=== PATIENT | female | born 1955 | race Caucasian/White ===

== ENCOUNTER → 2018-01-30 | Outpatient (CLI) | payer OTHER ==
[~2018-01-30] MED LIST: ASPI325 PO; Aspir-Low81 MG PO; B-121000 MC2 PO; CLOP75 PO; INSULIN PUMP INJ; LEVO-T75 MCG PO; METO50ER PO; ROSU10TA PO; VALS80 PO
== END | disposition home or self-care (01) ==
LOC: LAB 08:15 → LAB SHORT 08:15
PROVIDERS: Nurse Practitioner
DX: Z01.419 Encounter for gynecological examination (general) (routine) without abnormal findings (principal)
CPT/HCPCS: G0145

== ENCOUNTER 2018-02-08 09:35 | Day surgery (SDC) | payer OTHER ==
[~2018-02-08] VITALS: Ht 152.4 cm; Wt 63.0 kg
[~2018-02-08 09:35] MED LIST changes: +Centrum Silver1 EAC1 PO; +VITAMIN D31000 UNIT PO
[2018-02-08] MEDS ORDERED: LOSA25 PO (11:18)
== END 2018-02-08 20:05 | disposition home or self-care (01) ==
LOC: MHTC 09:35 → ICUE 15:02 → MHTC 15:02
PROC: B41GYZZ Fluoroscopy of Left Lower Extremity Arteries using Other Contrast (ICD-10-PCS; principal; 2018-02-08)
PROC: B410YZZ Fluoroscopy of Abdominal Aorta using Other Contrast (ICD-10-PCS; principal; 2018-02-08)
DX: E10.51 Type 1 diabetes mellitus with diabetic peripheral angiopathy without gangrene (principal); I70.212 Atherosclerosis of native arteries of extremities with intermittent claudication, left leg; Z79.4 Long term (current) use of insulin; Z79.02 Long term (current) use of antithrombotics/antiplatelets; I10 Essential (primary) hypertension; E78.5 Hyperlipidemia, unspecified; E03.9 Hypothyroidism, unspecified; Z87.891 Personal history of nicotine dependence
CPT/HCPCS: 36140; 36245; 75710; 76937; 85347; 99152; 99153; C1769; C1887; C1894; J1644; J2250; J2405; J2720; J3010; J7030; J7040; Q9967

== ENCOUNTER 2018-09-21 23:35 | Emergency (ER) | payer OTHER ==
[~2018-09-21] VITALS: Ht 152.4 cm; Wt 68.0 kg
[~2018-09-21 23:35] MED LIST changes: +ASPI81CH PO; +Isosorbide Mono30 MG PO; +LOSA25 PO
== END 2018-09-22 01:20 | disposition home or self-care (01) ==
LOC: ER 23:35
DX: T85.898A Other specified complication of other internal prosthetic devices, implants and grafts, initial encounter (principal); I10 Essential (primary) hypertension; I25.2 Old myocardial infarction; I25.10 Atherosclerotic heart disease of native coronary artery without angina pectoris; Z88.0 Allergy status to penicillin; Z88.5 Allergy status to narcotic agent; Z88.2 Allergy status to sulfonamides; Z88.8 Allergy status to other drugs, medicaments and biological substances; Z79.899 Other long term (current) drug therapy; Z79.82 Long term (current) use of aspirin; Z95.1 Presence of aortocoronary bypass graft; Z87.891 Personal history of nicotine dependence
CPT/HCPCS: 99283

== ENCOUNTER 2018-11-22 06:54 | Day surgery (SDC) | payer OTHER ==
[~2018-11-22] VITALS: Ht 152.4 cm; Wt 69.0 kg
[2018-11-22] MEDS ORDERED: ROSU10TA PO (07:17)
--- NOTE | 2018-11-22 12:16 | NUR ---
PT BACK IN RECOVERY ROOM AT 1100, SUPINE WITH STABLE ANGIOSEAL SITE R GROIN. SLEEPING, BUT WOKE 10 MIN AGO NAUSEATED. VOMITED 150 CC'S RYAN FLUID, ON BEDPAN NOW AND STATES NAUSEA BETTER. SIPPING H2O, NOT READY FOR LUNCH YET. SEE RYTHMN STRIP RECORD FOR VS - VS WNL. RA 93%.
--- NOTE | 2018-11-22 12:40 | NUR ---
PT UNABLE TO VOID. DR. FRANCOIS INFORMED. TO DO IN AND OUT CATH TO RELIECVE BLADDER PRESSURE.
--- NOTE | 2018-11-22 12:55 | NUR ---
#14 NEW ZEALANDER CAUDE CATHETER PLACED FOR INABILITY TO VOID. DURING INSERTION PT VOMITED 30 CC AND CATHETER WAS COUGHED OUT. 300 CC CLEAR YELLOW URINE PRIOR TO REMOVAL.
--- NOTE | 2018-11-22 15:12 | NUR ---
PT DRESSED, IV DC'D TIP INTACT, AMB TO BTR OK, L GROIN SITE STABLE, DC'D BY WC BY ESCORT W BROTHER GIVING PT RIDE HOME
== END 2018-11-22 15:15 | disposition home or self-care (01) ==
LOC: MHTC 06:54
DX: I70.221 Atherosclerosis of native arteries of extremities with rest pain, right leg (principal); I70.8 Atherosclerosis of other arteries
CPT/HCPCS: 37226; 37229; 37233; 75625; 75716; 75774; 85347; 99152; 99153; C1725; C1760; C1769; C1874; C1885; C1887; C1894; C1895; C2623; J1644; J2250; J2405; J3010; J7030; Q9967

== ENCOUNTER 2018-12-26 00:35 | Day surgery (SDC) | payer OTHER ==
[~2018-12-26] VITALS: Ht 152.4 cm; Wt 69.0 kg
--- NOTE | 2018-12-26 13:10 | NUR ---
PT TO RECOVERY ROOM POST PROCEDURE. PT IS DROWSY, BUT ANSWERING QUESTIONS, REPORTS GEN ACHINESS, BUT DENIES NEED FOR PAIN MEDICATION. MONITOR SR 60'S, B/P 158/70, SP02 94% RA. R GROIN NO SWELLING/HEMATOMA, TEGADERM IN PLACE C,D,I. L FOOT ACCESS SITE, NO SWELLING/HEMATOMA, CLARIBEL IN PLACE. BLE PULSES LLE 2+ DP AND PT, RLE 1+ DP AND 2+ PT. PT TOOK SIPS OF WATER, NO NAUSEA.
--- NOTE | 2018-12-26 16:07 | NUR ---
PT DRESSED SELF WITHOUT ANY PROBLEMS. PT RECEIVED DISCHARGE INSTRUCTIONS AND SUPPLEMENTAL HANDOUTS FOR GROIN SITE CARE; VERBALIZED GOOD UNDERSTANDING. IV REMOVED WITHOUT ISSUE-CANNULA INTACT.
--- NOTE | 2018-12-26 16:28 | NUR ---
PT LEFT FACILITY WITH FRIEND VIA W/C, CONDITION STABLE.
== END 2018-12-26 16:00 | disposition home or self-care (01) ==
LOC: MHTC 00:35
DX: I70.202 Unspecified atherosclerosis of native arteries of extremities, left leg (principal); Z88.0 Allergy status to penicillin; Z88.1 Allergy status to other antibiotic agents; Z88.5 Allergy status to narcotic agent; Z88.8 Allergy status to other drugs, medicaments and biological substances
CPT/HCPCS: 37226; 37228; 37252; 75710; 76937; 85347; 99152; 99153; C1725; C1760; C1769; C1773; C1874; C1887; C1894; C2623; J0461; J1644; J2250; J2405; J3010; J7030; Q9967

== ENCOUNTER 2019-04-23 06:24 | Day surgery (SDC) | payer OTHER ==
[~2019-04-23] VITALS: Ht 152.4 cm; Wt 68.0 kg
--- NOTE | 2019-04-23 14:03 | NUR ---
Pt dressed preparing for discharge. Pt states she is nauseated orders for Zofran given. Right groin and right ankle sites wnl. Pt able to ambulae. Pt given zofran with good relief. Iv removed cath intact pt jamal well. Warm blanket on calf earlier help relieve cramping. Discharge inst given. Pt verbalized understanding of having someone spend the night with her. Pt home via wheel chair. Home stable
== END 2019-04-23 14:00 | disposition home or self-care (01) ==
LOC: MHTC 06:24
DX: I70.221 Atherosclerosis of native arteries of extremities with rest pain, right leg (principal); E10.51 Type 1 diabetes mellitus with diabetic peripheral angiopathy without gangrene; E78.5 Hyperlipidemia, unspecified; I10 Essential (primary) hypertension; E03.9 Hypothyroidism, unspecified; Z87.891 Personal history of nicotine dependence; Z88.5 Allergy status to narcotic agent; Z88.0 Allergy status to penicillin; Z88.2 Allergy status to sulfonamides; Z88.1 Allergy status to other antibiotic agents; Z79.82 Long term (current) use of aspirin
CPT/HCPCS: 37220; 37227; 37228; 37232; 75716; 75774; 85347; 99152; 99153; C1725; C1760; C1769; C1874; C1885; C1887; C1894; J1644; J2250; J2405; J3010; J7030; Q9967

== ENCOUNTER 2019-10-16 09:25 | Inpatient (IN) | payer OTHER ==
[~2019-10-16] VITALS: Ht 152.4 cm; Wt 67.8 kg
[~2019-10-16 09:25] MED LIST changes: +TRAM50 PO
[2019-10-16] MEDS ORDERED: GABA100 PO (09:54)
--- NOTE | 2019-10-16 14:22 | NUR ---
pt back from procedure. Pts toes on pts left foot are blue and purple in color and foot is ice cold. prior to procedure foot was red in color half way up foot but warm to the touch. doppler PT pulse noted on left foot prior to procedure with no doppler DP pulses. post procedure doppler PT pulse is noted with no doppler DP. Pt also has noted swelling above lateral left ankle that wraps around posteriorly. Swelling marked with skin marker. Right femoral site is oozing, RN holding manual pressure to site [id number]. New nepture dressing applied to r femoral site. Pts BP also noted to be increasing to 206/88. MD called to bedside for re-evaluation of pts foot and BP. MD informed of color and temperature change in pts foot. recieved verbal order for hydralazine 10MG iv now and 10MG if no improvement in BP. states he will re-evaluate pt. if no change in coloring or temperature in pts left foot, will plan to put pt back on table. Pts bp improving post hydralazing. pt laying in bed still sedated from procedure. will continue to monitor.
--- NOTE | 2019-10-16 15:27 | NUR ---
12 LEAD EKD OBTAINED PER AND SHOWN TO ALESSANDRO WELLS WHO ASKED FOR TAX PROCESSOR OVEN ATTENDANT TO SEE PT. CATHETER PLACED FOR URINATION. PTS CALF MEASURED 31CM POST CATHETER. CURRENTLY LEFT CALF SIZE 33CM IN SIZE. AND PT REPORTING PAIN 02/05. URINE OUTPUT 450. CLEAR AND YELLOW. OVEN ATTENDANT AT BEDSIDE STATES WES CARDIA COULD BE RELATED TO PAIN AND TO MEDICATE FOR PAIN, FENTANYL 25-50MCG IV [id number] FOR PAIN AND TO GIVE ATROPINE 0.5-1MG IVP FOR HR BELOW 40. WILL CONTINUE TO MONITOR.
--- NOTE | 2019-10-16 15:51 | NUR ---
PT MEDICATED WITH 25MCG FENTANYL IV FOR 9/10 PAIN AT 1335. PT REPORTS IMPROVEMENT IN PAIN 3/10 IN L CALF. WILL CONTINUE TO MONITOR. VSS
--- NOTE | 2019-10-16 16:00 | NUR ---
DR. FRANCOIS BACK AT BEDSIDE STATING PT WILL BE TAKEN BACK TO THE LAB AND WILL BE ADMITTED. PT REPORTING PAIN IN L CALF THAT IS GOING UP INTO L HIP. PT MEDICATED WITH 25MCG FENTANYL. PTS BROTHER NOTIFIED OF PT STAYING OVER NIGHT. WILL CONTINUE TO MONITOR.
--- NOTE | 2019-10-16 16:45 | NUR ---
PT MEDICATED WITH 25MCG FENTANYL FOR L LEG PAIN. PTS EPISODES OF BRADYCARDIA SEEMS TO SUBSIDE POST FENTANYL. PT IS STARTING TO HAVE PERIODS OF BRADYCARDIA AFTER FENTANYL GIVEN IV. WILL CONTINUE TO MONITOR. PT AWAITING TO RETURN TO THE SHRINK PIT OPERATOR.
--- NOTE | 2019-10-16 17:00 | NUR ---
PT BACK TO NATURAL FOODS CLERK THEN WILL BE ADMITTED.
--- NOTE | 2019-10-16 19:23 | NUR ---
ICU ARRIVAL SUMMARY Assumed care of pt upon arrival to ICU from [facility] at 1815. Pt initially outpatient but admitted for continued monitoring. Bedside report received from Poncho CAREY. Pt had two peripheral angiograms of LLE today, receiving a total of three stents. Pt had angioseal closure placed to right femoral artery after each angiogram. After second angiogram, pt required 10 minutes of manual pressure to right groin. Hemostasis achieved at 1800 per slabbing machine operator staff. LLE has cyanotic toes, which is an expected finding per slabbing machine operator staff and is improved in appearance compared to digit appearace prior to second angiogram. Pedal pulse located with doppler. Mateo patch on medial left ankle due to attempted arterial access in slabbing machine operator. Attempted to locate pulse posterior tibial pulse- unable to do so. Pt A&O x 4. States pain to LLE. Fentanyl and tramadol given per orders. Lungs clear with dim bases. SpO2 90% or greater. Pt states she has sleep apnea and wears CPAP at home. Pt arrived with warren catheter in place, this was placed in heart center. Heparin drip not yet started as lab is in room to obtain baseline PTT. This RN placed call to Maxime MILIAN to notify provider that pt is in the unit. Maxime MILIAN states plan to assess patient shortly. Bedside report given to Jean Pierre CAREY. Plan to notify Maxime MILIAN that pt wears CPAP at home. Plan to start heparin drip when orders entered by pharmacy.
--- NOTE | 2019-10-16 20:00 | NUR ---
ASSUMED CARE OF PT AT 1915. REPORT RECEIVED AT BEDSIDE. PT PRESENTS IN BED SUPINE SECONDARY TO POST PERIPHERAL. RIGHT GROIN SITE ACCESS WITH SOME BLOOD UPON DRESSING. WILL MONITOR. NO HEMATOMA NOTED. PT TO BE ON HEPARIN DRIP. WILL REVIEW CHART AND PLAN OF CARE FOR THIS PT.
--- NOTE | 2019-10-16 23:00 | NUR ---
HAVE BEEN ABLE TO OBTAIN PEDAL PULSE ON LEFT FOOT WHEREAS IS VERY FAINT, AND DIFFICULT TO FIND. LEFT LOWER LEG COOLER THAN RIGHT. LEFT CALF ALSO HAS EDEMA WHICH HAS BEEN UNCHANGED. PT CONTINUES ON HEPARIN DRIP. HAVE ATTEMPTED TO PLACE POWERGLIDE IV WHICH UNFORTUNATELY WAS UNSUCCESSFUL. PT HAS BEEN PAINFUL IN LEFT LOWER EXTREMITY. HAVE MEDICATED PT WITH FENTANYL FOR PAIN WHICH SHE DESCRIBES BURNING.
[2019-10-16 23:09] LABS: Hematocrit 36.4 % (33.0-51.0); Mean Corpuscular HGB 31.2 pg (26.0-34.0); Mean Platelet Volume 10.1 fL (9.1-12.4); Platelet Count 236 K/mm3 (150-400); RDW Coefficient Variation 12.8 % (11.7-14.2); RDW Standard Deviation 44.3 fL (35.1-46.3); Red Blood Cell Count 3.85 M/mm3 (3.80-5.20); White Blood Cell Count 9.81 K/mm3 (4.00-11.30)
[2019-10-16 23:11] LABS: Mean Corpuscular Volume 95 fL (80-100)
[2019-10-16 23:27] LABS: International Normalized Ratio 1.08; Prothrombin Time Results 11.5 Sec (9.7-11.5)
[2019-10-16 23:32] LABS: Alanine Aminotransfer (ALT/SGP 28 U/L (12-78); Albumin, Blood 3.3 g/dL (3.4-5.0); Albumin/Globulin Ratio 0.9 (0.8-1.8); Alk Phos 50 U/L (50-136); Anion Gap 10 mmol/L (6-16); Aspartate Aminotrans (AST/SGOT 24 U/L (12-37); Bilirubin, Total 0.9 mg/dL (0.1-1.0); Blood Urea Nitrogen 21 mg/dL (8-24); Bun/Creatinine Ratio 27.8 (12.0-20.0); CO2, Blood 23 mmol/L (21-32); Calcium, Blood 8.5 mg/dL (8.5-10.1); Chloride, Blood 104 mmol/L (98-108); Creatinine, Blood 0.76 mg/dL (0.40-1.00); Globulin, Blood 3.7 g/dL (2.2-4.0); Glomerular Filtration Rate >60 (60-); Glucose, Blood 243 mg/dL (70-99); Magnesium, Blood 1.9 mg/dL (1.6-2.4); Potassium, Blood 4.6 mmol/L (3.5-5.5); Sodium, Blood 137 mmol/L (136-145)
[2019-10-16 23:36] LABS: Thyroid Stimulating Hormone 0.729 uIU/mL (0.360-4.800)
--- NOTE | 2019-10-17 03:00 | NUR ---
HEPARIN DRIP HAS BEEN ON HOLD SECONDARY TO CRITICAL HIGH aPTT. PT HAS BEEN HAVING SOME OOZING FROM RIGHT GROIN SITE. NO HEMATOMAS NOTED. HAVE MEDICATED PT WITH ULTRAM WELL FENTANYL FOR LEG PAIN. WILL CONTINUE TO MONITOR.
[2019-10-17 03:58] LABS: Hematocrit 33.5 % (33.0-51.0); Hemoglobin 11.2 g/dL (11.5-16.0); Mean Corpuscular HGB 31.3 pg (26.0-34.0); Mean Corpuscular HGB Conc 33.4 g/dL (31.5-36.5); Mean Corpuscular Volume 94 fL (80-100); Mean Platelet Volume 9.9 fL (9.1-12.4); Platelet Count 229 K/mm3 (150-400); RDW Coefficient Variation 12.8 % (11.7-14.2); RDW Standard Deviation 44.5 fL (35.1-46.3); Red Blood Cell Count 3.58 M/mm3 (3.80-5.20); White Blood Cell Count 7.25 K/mm3 (4.00-11.30)
[2019-10-17 04:20] LABS: Alanine Aminotransfer (ALT/SGP 23 U/L (12-78); Albumin, Blood 3.1 g/dL (3.4-5.0); Alk Phos 45 U/L (50-136); Anion Gap 7 mmol/L (6-16); Aspartate Aminotrans (AST/SGOT 19 U/L (12-37); Bilirubin, Total 0.8 mg/dL (0.1-1.0); Blood Urea Nitrogen 21 mg/dL (8-24); Bun/Creatinine Ratio 26.1 (12.0-20.0); CO2, Blood 25 mmol/L (21-32); Calcium, Blood 8.2 mg/dL (8.5-10.1); Chloride, Blood 104 mmol/L (98-108); Globulin, Blood 3.2 g/dL (2.2-4.0); Glomerular Filtration Rate >60 (60-); Glucose, Blood 167 mg/dL (70-99); Magnesium, Blood 1.9 mg/dL (1.6-2.4); Potassium, Blood 4.5 mmol/L (3.5-5.5); Sodium, Blood 136 mmol/L (136-145); Total Protein, Blood 6.3 g/dL (6.4-8.2)
--- NOTE | 2019-10-17 06:41 | NUR ---
HEPARIN DRIP HAS BEEN RESTARTED PER PHARMACY. SECONDARY TO PT'S CONTINUED HIGH PAIN LEVELS WITH 50 MCG FENTANYL AT APPROX Q 1-2 HOURS, CALL MADE TO DR FRANCOIS TO UPDATE. NO NEW ORDERS RECEIVED. UPDATE ON PULSES AND LOWER EXTREMITY ASSESSMENT. PT HAS BEEN NAUSEAS SEVERAL TIMES THIS NIGHT. WAS MEDICATED WITH ZOFRAN. PT HAS REQUESTED TO BE ABLE TO SIT UP AT SIDE OF BED. DOES STATE SHE FEELS SOMEWHAT DIZZY POST FENTANYL. DID PLACE BED IN CHAIR POSITION WHICH PATIENT STATES SHE LIKES. PT CURRENTLY SLEEPING IN BED WITHOUT COMPLAINTS. WILL CONTINUE TO MONITOR PT, AND WILL REPORT OFF TO ONCOMING RN.
--- NOTE | 2019-10-17 10:38 | NUR ---
CARE ASSUMED PT A/O X4 AND IS ANXIOUS AND PALE. PT REPORTS PN 3/10 ON LLE AND NAUSEA 3/10. CURRENTLY ON 2 L NC SPO2 REMAINS >95%. NO BM SINCE YESTERDAY. PROVIDER STOPPED BY TO ASSESS LLE AND USING DOPPLER LEFT POST TIBAL PULSE WAS NOTED TO BE FAINT/TREADY AND LEFT PEDAL PULSE COULD NOT BE DETECTED. PROVIDER ALSO SPOKE TO PT ABOUT BYPASS VS POSSIBLE AMPUTATION OF L FOOT DUE TO DECREASED BLOOD FLOW AND DISSECTED VESSELS. PT ANXIOUS BUT EASILY REASSURED. IV LEFT FA CURRENTLY INFUSING HEPARIN 11 U/KG/HR AND NS. PT REPORTS IMPROVEMENT IN PAIN WHILE SITTING IN CHAIR POSITION.
--- NOTE | 2019-10-17 13:50 | NUR ---
0745 CARE ASSUMED PATIENT SLEEPING IN BED AND EASILY AROUSED.VSS. PT STATES HAVING 8/10 PAIN IN UPPER ABD AND NAUSEA IS NO LONGER PRESENT. PT IS DROWSY AND FALLS BACK ASLEEP QUICKLY AFTER ASSESSMENT, PN INTERVENTIONS DEFERRED. PT HAS BASCULAR ACCESS LEFT AC AND RIGHT HAND, BOTH SITES WNL AND INFUSING WITHOUT DIFFICULTLY. PATIENT SITTING IN BED AND EATING BREAKFAST. MEDICATED FOR CIWA SCORE OF 8. ASSEMBLER FINGER BUFFS IN FOR ASSESSMENT. PATIENT RESTING QUIETLY AFTER LIBRIUM.
--- NOTE | 2019-10-17 16:22 | NUR ---
1200 UPDATE PT MEDICATED WITH PHENERGAN PER MAR FOR N/V. AFTER MEDICATED, PT BECAME SLEEPY, VSS, SPO2 >95% ON RA. PT OPENS EYES BRIEFLY TO VOICE, ANSWERS QUESTIONS BUT THEN FALLS BACK ASLEEP. DR. ROSE AT BEDSIDE WITH THIS RN TO ASSESS PATIENT, PT UNABLE TO HOLD CONVERSATION D/T DROWSINESS BUT REMAINS APPROPRIATE AND ORIENTED. AFTER DR. ROSE LEFT, PT SUDDENLY WOKE, TOOK OFF GOWN, AND ATTEMPTED TO GET OOB, RN'S AT BEDSIDE, PT STATES SHE WAS TYRYING TO GET OUT OF THE CAR, IS CONFUSED BUT COOPERATIVE. PT ASSISTED SAFELY TO CHAIR, TAB ALARM ON, BATH GIVEN BY SN, PT ATE LUNCH, THEN ASSISTED BACK TO BED WITH MAX 2 PERSON ASSIST AND WALKER, GAIT UNSTEADY, PT UNABLE TO BEAR WEIGHT ON LLE D/T PAIN. PT SEEMS TO BE BE ALERT AND ORIENTED AT THIS TIME, IS AWAKE AND ANSWERING QUESTIONS, STATES SHE HAD BEEN CONFUSED. TAB ALARM REMAINS ON, BED POSITIONED IN REV [place] FOR COMFORT. CLOSE MONITORING RESUMED. VSS.
--- NOTE | 2019-10-17 18:11 | NUR ---
PATIENT ARRIVED FROM ICU VIA HER BED AT 1802. TRANSFERRED TO OUR BED WITHOUT INCIDENT. C/O 09/05 LLE PAIN, WORSE WITH PALPATION AND MOVEMENT, LAST MEDICATED AT 1639. MEREDITH IN PLACE. CALL LIGHT AND BELONGINGS IN REACH. BED PLACED IN CHAIR POSITION TO FACILITATE BLE PERFUSION. ON ROOM AIR, IN NAD.
--- NOTE | 2019-10-17 19:29 | NUR ---
1710 TRANSFER TO MED FLOOR PT REMAINS ALERT AND ORIENTED X3 THIS AFTERNOON, WAS APPROPRIATE AND COOPERATIVE, NO ADDITIONAL EPISODES OF CONFUSION. VSS, PT'S APPETITE POOR TODAY SECONDARY TO NAUSEA AND DROWSINESS. PT AWARE OF PLAN OF CARE AND PENDING VISIT TO VASCULAR SURGEON TOMORROW. 'Randa ROSE AND ALESSANDRO IN TO SEE PATIENT AGAIN THIS AFTERNOON TO UPDATE PT AND STAFF ON PLAN OF CARE. PT'S LLE REMAINS PURPLE/RED IN COLOR, COOL TO TOUCH, PEDAL PULSE ABSENT, PT PULSE PRESENT BY DOPPLER ONLY. R GROIN AND L PT ACCESS SITES REMAIN UNCHANGED, DRESSING TO R GROIN CDI. PT CONTINUES TO REPORT LLE PAIN WITH BURNING SENSATION T/O DAY, RESPONDED WELL TO PAIN MEDICATIONS. PT TO ROOM 334 AT THIS TIME WITH CHART, MEDS AND BELONGINGS, REPORT TO CHERRY LLOYD.
--- NOTE | 2019-10-17 19:35 | NUR ---
10/18/19 VASCULAR APPT INFO [facility], DR. ADAMS [id number] [facility] [address] [place] [id number]
--- NOTE | 2019-10-17 19:39 | NUR ---
RN VERIFICATION THIS RN WORKED WITH SN TODAY, SUPERVISED AND AGREES WITH ALL CHARTING AND CARE.
--- NOTE | 2019-10-18 07:51 | NUR ---
PT A/O X4. HAS BEEN ON BEDREST ALL NIGHT. MEREDITH PATENT AND DRAINING TO GRAVITY. PLEASANT AND COOPERATIVE. CALLS APPROPRIATELY. L LEG PAIN HAS BEEN WELL CONTROLLED. MEDICATED FOR PAIN TWICE TONIGHT. VSS. REPORT GIVEN TO AM NURSE.
[2019-10-18] MEDS ORDERED: ONDA4ODT MM (09:40)
[2019-10-18] MEDS ORDERED: Percocet 5-3251 EACH PO (09:40)
--- NOTE | 2019-10-18 13:14 | NUR ---
PATIENT DISCHARGED, LEFT UNIT VIA W/C AT 1247. IV SL REMOVED WITHOUT INCIDENT. HAS ALL BELONGINGS. IS AWARE OF 1430 APPOINTMENT AT [facility] TODAY, BROTHER IS DRIVING HER.
== END 2019-10-18 13:00 | disposition home or self-care (01) | DRG 254 ==
LOC: MHTC 09:25 → ICUW 18:09 → MHTC 10-17 18:02 → MEDS 10-17 18:02
PROVIDERS: Nurse Practitioner Acute Care; ADMIT Radiology Diagnostic Radiology
PROC: B41J1ZZ Fluoroscopy of Other Lower Arteries using Low Osmolar Contrast (ICD-10-PCS; principal; 2019-10-16)
PROC: 047K3Z1 Dilation of Right Femoral Artery using Drug-Coated Balloon, Percutaneous Approach (ICD-10-PCS; 2019-10-16)
PROC: 047P3ZZ Dilation of Right Anterior Tibial Artery, Percutaneous Approach (ICD-10-PCS; 2019-10-16)
PROC: 047R3ZZ Dilation of Right Posterior Tibial Artery, Percutaneous Approach (ICD-10-PCS; 2019-10-16)
PROC: 047M34Z Dilation of Right Popliteal Artery with Drug-eluting Intraluminal Device, Percutaneous Approach (ICD-10-PCS; 2019-10-16)
DX: I70.213 Atherosclerosis of native arteries of extremities with intermittent claudication, bilateral legs (principal); I73.89 Other specified peripheral vascular diseases; R00.1 Bradycardia, unspecified; E11.8 Type 2 diabetes mellitus with unspecified complications; Z79.4 Long term (current) use of insulin; I25.10 Atherosclerotic heart disease of native coronary artery without angina pectoris; E03.9 Hypothyroidism, unspecified; I10 Essential (primary) hypertension; I77.9 Disorder of arteries and arterioles, unspecified
CPT/HCPCS: 36140; 36415; 37226; 37227; 37228; 37232; 75716; 75774; 76937; 80053; 82947; 83735; 84443; 85027; 85347; 85610; 85730; 93005; 93010; 94660; 94762; 97112; 97162; 97166; 97535; 99152; 99153; A9270-GY; C1714; C1725; C1760; C1769; C1874; C1876; C1887; C1894; C2623; J0360; J0461; J1644; J2250; J2405; J2550; J3010; J7030; Q9967

== ENCOUNTER 2019-12-11 00:17 | Day surgery (SDC) | payer OTHER ==
[~2019-12-11 00:17] MED LIST changes: +GABA100 PO; +ONDA4ODT MM; +Percocet 5-3251 EACH PO
== END 2019-12-11 22:48 | disposition home or self-care (01) ==
LOC: WOUND 00:17
DX: S81.802A Unspecified open wound, left lower leg, initial encounter (principal); X58.XXXA Exposure to other specified factors, initial encounter

== ENCOUNTER 2019-12-23 00:51 | Day surgery (SDC) | payer OTHER | END 2019-12-23 22:54 | disposition home or self-care (01) | LOC: WOUND 00:51 | DX: M79.A22 Nontraumatic compartment syndrome of left lower extremity (principal); E11.622 Type 2 diabetes mellitus with other skin ulcer; L97.828 Non-pressure chronic ulcer of other part of left lower leg with other specified severity; I25.10 Atherosclerotic heart disease of native coronary artery without angina pectoris; E11.51 Type 2 diabetes mellitus with diabetic peripheral angiopathy without gangrene; Z96.41 Presence of insulin pump (external) (internal); Z79.899 Other long term (current) drug therapy; Z79.02 Long term (current) use of antithrombotics/antiplatelets ==

== ENCOUNTER 2020-01-13 00:24 | Day surgery (SDC) | payer OTHER | END 2020-01-13 23:00 | disposition home or self-care (01) | LOC: WOUND 00:24 | DX: M79.A22 Nontraumatic compartment syndrome of left lower extremity (principal); E11.622 Type 2 diabetes mellitus with other skin ulcer; E11.51 Type 2 diabetes mellitus with diabetic peripheral angiopathy without gangrene; L97.828 Non-pressure chronic ulcer of other part of left lower leg with other specified severity; I25.10 Atherosclerotic heart disease of native coronary artery without angina pectoris; Z96.41 Presence of insulin pump (external) (internal); Z79.899 Other long term (current) drug therapy ==

== ENCOUNTER 2020-01-20 00:30 | Day surgery (SDC) | payer OTHER | END 2020-01-20 22:55 | disposition home or self-care (01) | LOC: WOUND 00:30 | DX: M79.A22 Nontraumatic compartment syndrome of left lower extremity (principal); E11.621 Type 2 diabetes mellitus with foot ulcer; L97.828 Non-pressure chronic ulcer of other part of left lower leg with other specified severity; I25.10 Atherosclerotic heart disease of native coronary artery without angina pectoris; E11.51 Type 2 diabetes mellitus with diabetic peripheral angiopathy without gangrene ==

== ENCOUNTER 2020-01-27 00:24 | Day surgery (SDC) | payer OTHER | END 2020-01-27 22:42 | disposition home or self-care (01) | LOC: WOUND 00:24 | DX: E11.622 Type 2 diabetes mellitus with other skin ulcer (principal); L97.828 Non-pressure chronic ulcer of other part of left lower leg with other specified severity; M79.A22 Nontraumatic compartment syndrome of left lower extremity; I25.10 Atherosclerotic heart disease of native coronary artery without angina pectoris; E11.51 Type 2 diabetes mellitus with diabetic peripheral angiopathy without gangrene; Z96.41 Presence of insulin pump (external) (internal) ==

== ENCOUNTER 2020-02-04 00:32 | Day surgery (SDC) | payer OTHER | END 2020-02-04 22:37 | disposition home or self-care (01) | LOC: WOUND 00:32 | DX: M79.A22 Nontraumatic compartment syndrome of left lower extremity (principal); E11.622 Type 2 diabetes mellitus with other skin ulcer; L97.828 Non-pressure chronic ulcer of other part of left lower leg with other specified severity; E11.51 Type 2 diabetes mellitus with diabetic peripheral angiopathy without gangrene; I25.10 Atherosclerotic heart disease of native coronary artery without angina pectoris; Z96.41 Presence of insulin pump (external) (internal) | CPT/HCPCS: G0463 ==

== ENCOUNTER 2020-02-07 07:56 | Day surgery (SDC) | payer OTHER | END 2020-02-07 22:40 | disposition home or self-care (01) | LOC: WOUND 07:56 | DX: E11.622 Type 2 diabetes mellitus with other skin ulcer (principal); E11.51 Type 2 diabetes mellitus with diabetic peripheral angiopathy without gangrene; M79.A22 Nontraumatic compartment syndrome of left lower extremity; L97.828 Non-pressure chronic ulcer of other part of left lower leg with other specified severity; I25.10 Atherosclerotic heart disease of native coronary artery without angina pectoris; Z96.41 Presence of insulin pump (external) (internal); Z79.899 Other long term (current) drug therapy; Z79.82 Long term (current) use of aspirin ==

== ENCOUNTER 2020-02-19 00:41 | Day surgery (SDC) | payer OTHER | END 2020-02-19 22:51 | disposition home or self-care (01) | LOC: WOUND 00:41 | DX: M79.A22 Nontraumatic compartment syndrome of left lower extremity (principal); E11.622 Type 2 diabetes mellitus with other skin ulcer; E11.51 Type 2 diabetes mellitus with diabetic peripheral angiopathy without gangrene; L97.828 Non-pressure chronic ulcer of other part of left lower leg with other specified severity; I25.10 Atherosclerotic heart disease of native coronary artery without angina pectoris; Z96.41 Presence of insulin pump (external) (internal); Z79.02 Long term (current) use of antithrombotics/antiplatelets; Z79.82 Long term (current) use of aspirin; Z79.899 Other long term (current) drug therapy | CPT/HCPCS: G0463 ==

== ENCOUNTER 2020-02-26 00:38 | Day surgery (SDC) | payer OTHER | END 2020-02-26 22:37 | disposition home or self-care (01) | LOC: WOUND 00:38 | DX: T81.89XA Other complications of procedures, not elsewhere classified, initial encounter (principal); E10.52 Type 1 diabetes mellitus with diabetic peripheral angiopathy with gangrene; I96 Gangrene, not elsewhere classified; E10.36 Type 1 diabetes mellitus with diabetic cataract; E10.40 Type 1 diabetes mellitus with diabetic neuropathy, unspecified; H26.9 Unspecified cataract; M19.90 Unspecified osteoarthritis, unspecified site; G47.30 Sleep apnea, unspecified; I50.9 Heart failure, unspecified; I95.9 Hypotension, unspecified; I25.2 Old myocardial infarction; I25.10 Atherosclerotic heart disease of native coronary artery without angina pectoris; Z79.82 Long term (current) use of aspirin; Z79.02 Long term (current) use of antithrombotics/antiplatelets; Z79.4 Long term (current) use of insulin; Z96.41 Presence of insulin pump (external) (internal); Z79.899 Other long term (current) drug therapy; Z88.0 Allergy status to penicillin; Z88.1 Allergy status to other antibiotic agents; Z88.2 Allergy status to sulfonamides; Y83.8 Other surgical procedures as the cause of abnormal reaction of the patient, or of later complication, without mention of misadventure at the time of the procedure | CPT/HCPCS: G0463 ==

== ENCOUNTER 2020-03-04 00:45 | Day surgery (SDC) | payer OTHER | END 2020-03-04 22:39 | disposition home or self-care (01) | LOC: WOUND 00:45 | DX: T81.31XA Disruption of external operation (surgical) wound, not elsewhere classified, initial encounter (principal); E10.52 Type 1 diabetes mellitus with diabetic peripheral angiopathy with gangrene; I96 Gangrene, not elsewhere classified; E10.36 Type 1 diabetes mellitus with diabetic cataract; H26.9 Unspecified cataract; I11.0 Hypertensive heart disease with heart failure; I50.9 Heart failure, unspecified; I25.10 Atherosclerotic heart disease of native coronary artery without angina pectoris; E78.5 Hyperlipidemia, unspecified; E10.42 Type 1 diabetes mellitus with diabetic polyneuropathy; E03.9 Hypothyroidism, unspecified; G47.33 Obstructive sleep apnea (adult) (pediatric); I25.2 Old myocardial infarction; E66.3 Overweight; Z68.26 Body mass index [BMI] 26.0-26.9, adult; Z79.4 Long term (current) use of insulin; Z79.02 Long term (current) use of antithrombotics/antiplatelets; Z79.82 Long term (current) use of aspirin; Z79.899 Other long term (current) drug therapy; Z88.0 Allergy status to penicillin; Z96.41 Presence of insulin pump (external) (internal); Z88.1 Allergy status to other antibiotic agents; Z88.2 Allergy status to sulfonamides; Z88.5 Allergy status to narcotic agent; Z86.73 Personal history of transient ischemic attack (TIA), and cerebral infarction without residual deficits; Y83.8 Other surgical procedures as the cause of abnormal reaction of the patient, or of later complication, without mention of misadventure at the time of the procedure | CPT/HCPCS: G0463 ==

== ENCOUNTER 2020-03-11 00:56 | Day surgery (SDC) | payer OTHER | END 2020-03-11 12:00 | disposition home or self-care (01) | LOC: WOUND 00:56 | DX: T81.31XA Disruption of external operation (surgical) wound, not elsewhere classified, initial encounter (principal); E10.622 Type 1 diabetes mellitus with other skin ulcer; L97.822 Non-pressure chronic ulcer of other part of left lower leg with fat layer exposed; E10.52 Type 1 diabetes mellitus with diabetic peripheral angiopathy with gangrene; I96 Gangrene, not elsewhere classified; I25.10 Atherosclerotic heart disease of native coronary artery without angina pectoris; E10.36 Type 1 diabetes mellitus with diabetic cataract; H26.9 Unspecified cataract; G47.30 Sleep apnea, unspecified; I50.9 Heart failure, unspecified; I95.9 Hypotension, unspecified; I25.2 Old myocardial infarction; M19.90 Unspecified osteoarthritis, unspecified site; E10.40 Type 1 diabetes mellitus with diabetic neuropathy, unspecified; Z79.4 Long term (current) use of insulin; Z79.02 Long term (current) use of antithrombotics/antiplatelets; Z79.82 Long term (current) use of aspirin; Z79.899 Other long term (current) drug therapy; Z88.0 Allergy status to penicillin; Z88.1 Allergy status to other antibiotic agents; Z88.2 Allergy status to sulfonamides; Z88.5 Allergy status to narcotic agent; Y83.8 Other surgical procedures as the cause of abnormal reaction of the patient, or of later complication, without mention of misadventure at the time of the procedure | CPT/HCPCS: G0463 ==

== ENCOUNTER 2020-03-23 00:22 | Day surgery (SDC) | payer OTHER | END 2020-03-23 12:00 | disposition home or self-care (01) | LOC: WOUND 00:22 | DX: T81.31XA Disruption of external operation (surgical) wound, not elsewhere classified, initial encounter (principal); E11.622 Type 2 diabetes mellitus with other skin ulcer; L97.824 Non-pressure chronic ulcer of other part of left lower leg with necrosis of bone; M79.A22 Nontraumatic compartment syndrome of left lower extremity; E11.52 Type 2 diabetes mellitus with diabetic peripheral angiopathy with gangrene; I96 Gangrene, not elsewhere classified; E11.36 Type 2 diabetes mellitus with diabetic cataract; H26.9 Unspecified cataract; E11.40 Type 2 diabetes mellitus with diabetic neuropathy, unspecified; G47.30 Sleep apnea, unspecified; I50.9 Heart failure, unspecified; I25.2 Old myocardial infarction; M19.90 Unspecified osteoarthritis, unspecified site; I25.10 Atherosclerotic heart disease of native coronary artery without angina pectoris; Z88.0 Allergy status to penicillin; Z88.1 Allergy status to other antibiotic agents; Z88.2 Allergy status to sulfonamides; Z88.5 Allergy status to narcotic agent; Z79.4 Long term (current) use of insulin; Z79.02 Long term (current) use of antithrombotics/antiplatelets; Z79.82 Long term (current) use of aspirin; Z79.899 Other long term (current) drug therapy; Y83.8 Other surgical procedures as the cause of abnormal reaction of the patient, or of later complication, without mention of misadventure at the time of the procedure ==

== ENCOUNTER 2020-04-06 00:32 | Day surgery (SDC) | payer OTHER | END 2020-04-06 23:15 | disposition home or self-care (01) | LOC: WOUND 00:32 | DX: M79.A22 Nontraumatic compartment syndrome of left lower extremity (principal); E10.622 Type 1 diabetes mellitus with other skin ulcer; E10.51 Type 1 diabetes mellitus with diabetic peripheral angiopathy without gangrene; L97.828 Non-pressure chronic ulcer of other part of left lower leg with other specified severity; I25.10 Atherosclerotic heart disease of native coronary artery without angina pectoris; Z87.891 Personal history of nicotine dependence; I50.9 Heart failure, unspecified; Z79.899 Other long term (current) drug therapy ==

== ENCOUNTER 2020-04-13 01:11 | Day surgery (SDC) | payer OTHER | END 2020-04-13 23:07 | disposition home or self-care (01) | LOC: WOUND 01:11 | DX: M79.A22 Nontraumatic compartment syndrome of left lower extremity (principal); E11.622 Type 2 diabetes mellitus with other skin ulcer; E11.51 Type 2 diabetes mellitus with diabetic peripheral angiopathy without gangrene; L97.828 Non-pressure chronic ulcer of other part of left lower leg with other specified severity; I25.10 Atherosclerotic heart disease of native coronary artery without angina pectoris; Z96.41 Presence of insulin pump (external) (internal); Z79.899 Other long term (current) drug therapy ==

== ENCOUNTER 2020-04-20 02:01 | Day surgery (SDC) | payer OTHER | END 2020-04-20 23:18 | disposition home or self-care (01) | LOC: WOUND 02:01 | DX: M79.A22 Nontraumatic compartment syndrome of left lower extremity (principal); E10.622 Type 1 diabetes mellitus with other skin ulcer; L97.812 Non-pressure chronic ulcer of other part of right lower leg with fat layer exposed; E10.52 Type 1 diabetes mellitus with diabetic peripheral angiopathy with gangrene; I96 Gangrene, not elsewhere classified; T81.31XA Disruption of external operation (surgical) wound, not elsewhere classified, initial encounter; I25.10 Atherosclerotic heart disease of native coronary artery without angina pectoris; E10.36 Type 1 diabetes mellitus with diabetic cataract; H26.9 Unspecified cataract; G47.30 Sleep apnea, unspecified; I50.9 Heart failure, unspecified; I25.2 Old myocardial infarction; M19.90 Unspecified osteoarthritis, unspecified site; E10.40 Type 1 diabetes mellitus with diabetic neuropathy, unspecified; Z88.0 Allergy status to penicillin; Z88.1 Allergy status to other antibiotic agents; Z88.2 Allergy status to sulfonamides; Z88.5 Allergy status to narcotic agent; Z88.8 Allergy status to other drugs, medicaments and biological substances; Z91.013 Allergy to seafood; Z91.041 Radiographic dye allergy status; Z79.4 Long term (current) use of insulin; Z79.82 Long term (current) use of aspirin; Z79.02 Long term (current) use of antithrombotics/antiplatelets; Y83.8 Other surgical procedures as the cause of abnormal reaction of the patient, or of later complication, without mention of misadventure at the time of the procedure ==

== ENCOUNTER 2020-04-28 00:25 | Day surgery (SDC) | payer OTHER | END 2020-04-28 23:00 | disposition home or self-care (01) | LOC: WOUND 00:25 | DX: T81.31XD Disruption of external operation (surgical) wound, not elsewhere classified, subsequent encounter (principal); M79.A22 Nontraumatic compartment syndrome of left lower extremity; E10.622 Type 1 diabetes mellitus with other skin ulcer; L97.828 Non-pressure chronic ulcer of other part of left lower leg with other specified severity; E10.52 Type 1 diabetes mellitus with diabetic peripheral angiopathy with gangrene; I96 Gangrene, not elsewhere classified; E10.36 Type 1 diabetes mellitus with diabetic cataract; H26.9 Unspecified cataract; G47.30 Sleep apnea, unspecified; I50.9 Heart failure, unspecified; E10.40 Type 1 diabetes mellitus with diabetic neuropathy, unspecified; I25.10 Atherosclerotic heart disease of native coronary artery without angina pectoris; I95.9 Hypotension, unspecified; I25.2 Old myocardial infarction; M19.90 Unspecified osteoarthritis, unspecified site; Z96.41 Presence of insulin pump (external) (internal); Z79.4 Long term (current) use of insulin; Z79.02 Long term (current) use of antithrombotics/antiplatelets; Z79.82 Long term (current) use of aspirin; Z79.899 Other long term (current) drug therapy; Z88.0 Allergy status to penicillin; Z88.1 Allergy status to other antibiotic agents; Z88.2 Allergy status to sulfonamides; Z88.5 Allergy status to narcotic agent; Y83.8 Other surgical procedures as the cause of abnormal reaction of the patient, or of later complication, without mention of misadventure at the time of the procedure | CPT/HCPCS: G0463 ==

== ENCOUNTER 2020-05-05 00:28 | Day surgery (SDC) | payer OTHER | END 2020-05-05 22:37 | disposition home or self-care (01) | LOC: WOUND 00:28 | DX: T81.31XA Disruption of external operation (surgical) wound, not elsewhere classified, initial encounter (principal); M79.A22 Nontraumatic compartment syndrome of left lower extremity; E10.622 Type 1 diabetes mellitus with other skin ulcer; L97.822 Non-pressure chronic ulcer of other part of left lower leg with fat layer exposed; E10.52 Type 1 diabetes mellitus with diabetic peripheral angiopathy with gangrene; I96 Gangrene, not elsewhere classified; E10.36 Type 1 diabetes mellitus with diabetic cataract; H26.9 Unspecified cataract; G47.30 Sleep apnea, unspecified; I50.9 Heart failure, unspecified; I25.2 Old myocardial infarction; M19.90 Unspecified osteoarthritis, unspecified site; E10.40 Type 1 diabetes mellitus with diabetic neuropathy, unspecified; I25.10 Atherosclerotic heart disease of native coronary artery without angina pectoris; Z88.0 Allergy status to penicillin; Z88.1 Allergy status to other antibiotic agents; Z88.2 Allergy status to sulfonamides; Z88.5 Allergy status to narcotic agent; Z96.41 Presence of insulin pump (external) (internal); Z79.4 Long term (current) use of insulin; Z79.02 Long term (current) use of antithrombotics/antiplatelets; Z79.82 Long term (current) use of aspirin; Z79.899 Other long term (current) drug therapy; Y83.8 Other surgical procedures as the cause of abnormal reaction of the patient, or of later complication, without mention of misadventure at the time of the procedure | CPT/HCPCS: Q4133 ==

== ENCOUNTER 2020-05-11 00:20 | Day surgery (SDC) | payer OTHER | END 2020-05-11 22:44 | disposition home or self-care (01) | LOC: WOUND 00:20 | DX: T81.31XA Disruption of external operation (surgical) wound, not elsewhere classified, initial encounter (principal); E11.622 Type 2 diabetes mellitus with other skin ulcer; L97.822 Non-pressure chronic ulcer of other part of left lower leg with fat layer exposed; E11.52 Type 2 diabetes mellitus with diabetic peripheral angiopathy with gangrene; I96 Gangrene, not elsewhere classified; E11.40 Type 2 diabetes mellitus with diabetic neuropathy, unspecified; I25.10 Atherosclerotic heart disease of native coronary artery without angina pectoris; E11.36 Type 2 diabetes mellitus with diabetic cataract; H26.9 Unspecified cataract; G47.30 Sleep apnea, unspecified; I50.9 Heart failure, unspecified; I25.2 Old myocardial infarction; M19.90 Unspecified osteoarthritis, unspecified site; Z88.0 Allergy status to penicillin; Z88.1 Allergy status to other antibiotic agents; Z88.2 Allergy status to sulfonamides; Z88.5 Allergy status to narcotic agent; Z79.4 Long term (current) use of insulin; Z96.41 Presence of insulin pump (external) (internal); Z79.02 Long term (current) use of antithrombotics/antiplatelets; Z79.82 Long term (current) use of aspirin; Z79.899 Other long term (current) drug therapy; Y83.8 Other surgical procedures as the cause of abnormal reaction of the patient, or of later complication, without mention of misadventure at the time of the procedure | CPT/HCPCS: Q4133 ==

== ENCOUNTER 2020-05-18 00:25 | Day surgery (SDC) | payer OTHER | END 2020-05-18 23:42 | disposition home or self-care (01) | LOC: WOUND 00:25 | DX: M79.A22 Nontraumatic compartment syndrome of left lower extremity (principal); E11.51 Type 2 diabetes mellitus with diabetic peripheral angiopathy without gangrene; E11.622 Type 2 diabetes mellitus with other skin ulcer; L97.828 Non-pressure chronic ulcer of other part of left lower leg with other specified severity; I25.10 Atherosclerotic heart disease of native coronary artery without angina pectoris; Z96.41 Presence of insulin pump (external) (internal); Z79.899 Other long term (current) drug therapy ==

== ENCOUNTER 2020-06-08 00:34 | Day surgery (SDC) | payer OTHER | END 2020-06-08 23:10 | disposition home or self-care (01) | LOC: WOUND 00:34 | DX: T81.31XD Disruption of external operation (surgical) wound, not elsewhere classified, subsequent encounter (principal); E11.622 Type 2 diabetes mellitus with other skin ulcer; L97.822 Non-pressure chronic ulcer of other part of left lower leg with fat layer exposed; E11.52 Type 2 diabetes mellitus with diabetic peripheral angiopathy with gangrene; I96 Gangrene, not elsewhere classified; M79.A22 Nontraumatic compartment syndrome of left lower extremity; E11.36 Type 2 diabetes mellitus with diabetic cataract; H26.9 Unspecified cataract; I11.0 Hypertensive heart disease with heart failure; I50.9 Heart failure, unspecified; I25.2 Old myocardial infarction; M19.90 Unspecified osteoarthritis, unspecified site; I25.10 Atherosclerotic heart disease of native coronary artery without angina pectoris; Z79.4 Long term (current) use of insulin; Z79.02 Long term (current) use of antithrombotics/antiplatelets; Z79.82 Long term (current) use of aspirin; Z79.899 Other long term (current) drug therapy; Z88.0 Allergy status to penicillin; Z88.1 Allergy status to other antibiotic agents; Z88.2 Allergy status to sulfonamides; Z88.5 Allergy status to narcotic agent; Y83.8 Other surgical procedures as the cause of abnormal reaction of the patient, or of later complication, without mention of misadventure at the time of the procedure | CPT/HCPCS: A9270; G0463 ==

== ENCOUNTER 2020-06-15 00:25 | Day surgery (SDC) | payer OTHER | END 2020-06-15 22:40 | disposition home or self-care (01) | LOC: WOUND 00:25 | DX: M79.A22 Nontraumatic compartment syndrome of left lower extremity (principal); L97.828 Non-pressure chronic ulcer of other part of left lower leg with other specified severity; E13.51 Other specified diabetes mellitus with diabetic peripheral angiopathy without gangrene; I25.10 Atherosclerotic heart disease of native coronary artery without angina pectoris | CPT/HCPCS: A9270; G0463 ==

== ENCOUNTER 2020-06-22 00:31 | Day surgery (SDC) | payer OTHER | END 2020-06-22 22:39 | disposition home or self-care (01) | LOC: WOUND 00:31 | DX: M79.A22 Nontraumatic compartment syndrome of left lower extremity (principal); L97.828 Non-pressure chronic ulcer of other part of left lower leg with other specified severity; E11.51 Type 2 diabetes mellitus with diabetic peripheral angiopathy without gangrene; I25.10 Atherosclerotic heart disease of native coronary artery without angina pectoris | CPT/HCPCS: G0463 ==

== ENCOUNTER 2020-10-10 03:47 | Emergency (ER) | payer MEDICARE, OTHER ==
[~2020-10-10] VITALS: Ht 152.4 cm; Wt 62.1 kg
[2020-10-10 04:43] LABS: BASOPHILS ABSOLUTE AUTO 0.04 K/mm3 (0.00-0.23); BASOPHILS PERCENT AUTO 1 % (0-2); EOSINOPHILS ABSOLUTE AUTO 0.31 K/mm3 (0.00-0.68); EOSINOPHILS PERCENT AUTO 7 % (0-6); Hematocrit 40.7 % (33.0-51.0); IMMATURE GRAN ABSOLUTE AUTO 0.01 K/mm3 (0.00-0.10); IMMATURE GRAN PERCENT AUTO 0 % (0-1); LYMPHOCYTES ABSOLUTE AUTO 1.06 K/mm3 (0.84-5.20); LYMPHOCYTES PERCENT AUTO 25 % (21-46); MONOCYTES ABSOLUTE AUTO 0.38 K/mm3 (0.16-1.47); MONOCYTES PERCENT AUTO 9 % (4-13); Mean Corpuscular HGB 28.7 pg (26.0-34.0); Mean Corpuscular HGB Conc 34.4 g/dL (31.5-36.5); Mean Corpuscular Volume 83 fL (80-100); Mean Platelet Volume 10.5 fL (9.1-12.4); NEUTROPHILS ABSOLUTE AUTO 2.52 K/mm3 (1.96-9.15); NEUTROPHILS PERCENT AUTO 58 % (41-73); Platelet Count 249 K/mm3 (150-400); RDW Coefficient Variation 13.9 % (11.7-14.2); RDW Standard Deviation 42.5 fL (35.1-46.3); Red Blood Cell Count 4.88 M/mm3 (3.80-5.20); White Blood Cell Count 4.32 K/mm3 (4.00-11.30)
[2020-10-10 05:03] LABS: Alanine Aminotransfer (ALT/SGP 20 U/L (12-78); Albumin, Blood 3.8 g/dL (3.4-5.0); Albumin/Globulin Ratio 0.8 (0.8-1.8); Alk Phos 81 U/L (50-136); Anion Gap 5 mmol/L (6-16); Aspartate Aminotrans (AST/SGOT 17 U/L (12-37); Bilirubin, Total 0.5 mg/dL (0.1-1.0); Blood Urea Nitrogen 19 mg/dL (8-24); Bun/Creatinine Ratio 24.1 (12.0-20.0); CO2, Blood 28 mmol/L (21-32); Calcium, Blood 9.3 mg/dL (8.5-10.1); Chloride, Blood 97 mmol/L (98-108); Creatinine, Blood 0.79 mg/dL (0.40-1.00); Globulin, Blood 4.5 g/dL (2.2-4.0); Glomerular Filtration Rate >60 (60-); Glucose, Blood 388 mg/dL (70-99); Sodium, Blood 130 mmol/L (136-145); Total Protein, Blood 8.3 g/dL (6.4-8.2); Troponin I <0.015 ng/mL (0.000-0.040)
== END 2020-10-10 08:50 | disposition home or self-care (01) ==
LOC: ER 03:47
PROVIDERS: Emergency Medicine
DX: E11.65 Type 2 diabetes mellitus with hyperglycemia (principal); R07.9 Chest pain, unspecified; I10 Essential (primary) hypertension; I25.810 Atherosclerosis of coronary artery bypass graft(s) without angina pectoris; E03.9 Hypothyroidism, unspecified; Z88.0 Allergy status to penicillin; Z88.5 Allergy status to narcotic agent; Z88.1 Allergy status to other antibiotic agents; Z88.2 Allergy status to sulfonamides; Z79.899 Other long term (current) drug therapy; Z79.82 Long term (current) use of aspirin; Z95.1 Presence of aortocoronary bypass graft; Z87.891 Personal history of nicotine dependence; Z79.4 Long term (current) use of insulin
CPT/HCPCS: 36415; 71045; 80053; 82947; 84484; 85025; 93005; 93010; 96374; 96375; 99284-25; J0360; J2405

== ENCOUNTER 2020-12-06 06:37 | Emergency (ER) | payer MEDICARE, OTHER ==
[~2020-12-06] VITALS: Ht 162.6 cm; Wt 68.0 kg
[2020-12-06 07:49] LABS: BASOPHILS ABSOLUTE AUTO 0.03 K/mm3 (0.00-0.23); BASOPHILS PERCENT AUTO 0 % (0-2); EOSINOPHILS ABSOLUTE AUTO 0.16 K/mm3 (0.00-0.68); EOSINOPHILS PERCENT AUTO 2 % (0-6); Hematocrit 35.4 % (33.0-51.0); IMMATURE GRAN ABSOLUTE AUTO 0.01 K/mm3 (0.00-0.10); IMMATURE GRAN PERCENT AUTO 0 % (0-1); LYMPHOCYTES ABSOLUTE AUTO 1.07 K/mm3 (0.84-5.20); LYMPHOCYTES PERCENT AUTO 16 % (21-46); MONOCYTES ABSOLUTE AUTO 0.58 K/mm3 (0.16-1.47); MONOCYTES PERCENT AUTO 8 % (4-13); Mean Corpuscular HGB 29.6 pg (26.0-34.0); Mean Corpuscular HGB Conc 33.9 g/dL (31.5-36.5); Mean Corpuscular Volume 87 fL (80-100); Mean Platelet Volume 10.1 fL (9.1-12.4); NEUTROPHILS ABSOLUTE AUTO 5.04 K/mm3 (1.96-9.15); NEUTROPHILS PERCENT AUTO 73 % (41-73); Platelet Count 270 K/mm3 (150-400); RDW Coefficient Variation 14.6 % (11.7-14.2); Red Blood Cell Count 4.06 M/mm3 (3.80-5.20); White Blood Cell Count 6.89 K/mm3 (4.00-11.30)
[2020-12-06 08:07] LABS: Albumin, Blood 3.4 g/dL (3.4-5.0); Albumin/Globulin Ratio 0.8 (0.8-1.8); Bilirubin, Total 0.8 mg/dL (0.1-1.0); Bun/Creatinine Ratio 18.6 (12.0-20.0); Calcium, Blood 9.5 mg/dL (8.5-10.1); Creatinine, Blood 0.97 mg/dL (0.40-1.00); Globulin, Blood 4.5 g/dL (2.2-4.0); Total Protein, Blood 7.9 g/dL (6.4-8.2)
[2020-12-06] MEDS ORDERED: OXYACE7.5T PO (10:39)
== END 2020-12-06 10:58 | disposition home or self-care (01) ==
LOC: ER 06:37
PROVIDERS: Family Medicine
DX: E11.51 Type 2 diabetes mellitus with diabetic peripheral angiopathy without gangrene (principal); E11.40 Type 2 diabetes mellitus with diabetic neuropathy, unspecified; I10 Essential (primary) hypertension; E03.9 Hypothyroidism, unspecified; Z79.4 Long term (current) use of insulin; Z87.891 Personal history of nicotine dependence
CPT/HCPCS: 36415; 73620; 80053; 85025; 85651; 96374; 96375; 99283-25; J2405; J3010

== ENCOUNTER 2022-04-08 01:51 | Emergency (ER) | payer MEDICARE, OTHER ==
[~2022-04-08] VITALS: Ht 165.1 cm; Wt 72.1 kg
[~2022-04-08 01:51] MED LIST changes: +OXYACE7.5T PO
[2022-04-08 02:22] LABS: BASOPHILS ABSOLUTE AUTO 0.03 K/mm3 (0.00-0.23); BASOPHILS PERCENT AUTO 1 % (0-2); EOSINOPHILS ABSOLUTE AUTO 0.18 K/mm3 (0.00-0.68); EOSINOPHILS PERCENT AUTO 3 % (0-6); Hematocrit 35.3 % (33.0-51.0); Hemoglobin 12.5 g/dL (11.5-16.0); IMMATURE GRAN ABSOLUTE AUTO 0.01 K/mm3 (0.00-0.10); IMMATURE GRAN PERCENT AUTO 0 % (0-1); LYMPHOCYTES ABSOLUTE AUTO 1.19 K/mm3 (0.84-5.20); LYMPHOCYTES PERCENT AUTO 20 % (21-46); MONOCYTES ABSOLUTE AUTO 0.38 K/mm3 (0.16-1.47); MONOCYTES PERCENT AUTO 6 % (4-13); Mean Corpuscular HGB 31.4 pg (26.0-34.0); Mean Corpuscular HGB Conc 35.4 g/dL (31.5-36.5); Mean Corpuscular Volume 89 fL (80-100); Mean Platelet Volume 9.7 fL (9.1-12.4); NEUTROPHILS ABSOLUTE AUTO 4.15 K/mm3 (1.96-9.15); NEUTROPHILS PERCENT AUTO 70 % (41-73); Platelet Count 288 K/mm3 (150-400); RDW Coefficient Variation 12.4 % (11.7-14.2); RDW Standard Deviation 40.5 fL (35.1-46.3); Red Blood Cell Count 3.98 M/mm3 (3.80-5.20); White Blood Cell Count 5.94 K/mm3 (4.00-11.30)
[2022-04-08 02:39] LABS: Albumin, Blood 3.5 g/dL (3.4-5.0); Albumin/Globulin Ratio 0.9 (0.8-1.8); Bilirubin, Total 0.4 mg/dL (0.1-1.0); Bun/Creatinine Ratio 31.5 (12.0-20.0); Calcium, Blood 9.2 mg/dL (8.5-10.1); Creatinine, Blood 0.83 mg/dL (0.40-1.00); Globulin, Blood 3.9 g/dL (2.2-4.0); Magnesium, Blood 2.3 mg/dL (1.6-2.4); Potassium, Blood 4.4 mmol/L (3.5-5.5); Total Protein, Blood 7.4 g/dL (6.4-8.2)
[2022-04-08 03:03] LABS: Influenza A, PCR NEGATIVE (NEGATIVE); Influenza B, PCR NEGATIVE (NEGATIVE); Resp Syncytial Virus, PCR NEGATIVE (NEGATIVE); SARS-Cov-2 (COVID-19) PCR, MMC NEGATIVE (NEGATIVE)
[2022-04-08] MEDS ORDERED: ONDA4ODT MM (06:27)
== END 2022-04-08 07:14 | disposition home or self-care (01) ==
LOC: ER 01:51
PROVIDERS: Student in an Organized Health Care Education/Training Program
DX: R11.2 Nausea with vomiting, unspecified (principal); R55 Syncope and collapse; I10 Essential (primary) hypertension; I25.10 Atherosclerotic heart disease of native coronary artery without angina pectoris; E03.9 Hypothyroidism, unspecified; E11.51 Type 2 diabetes mellitus with diabetic peripheral angiopathy without gangrene; Z87.891 Personal history of nicotine dependence; Z20.822 Contact with and (suspected) exposure to COVID-19; Z88.0 Allergy status to penicillin; Z88.5 Allergy status to narcotic agent; Z88.2 Allergy status to sulfonamides; Z88.1 Allergy status to other antibiotic agents; Z79.4 Long term (current) use of insulin; Z79.899 Other long term (current) drug therapy
CPT/HCPCS: 0241U; 71046; 80053; 83735; 83880; 84484; 85025; 93005; 93010; J1885; J2765; J7030

== ENCOUNTER 2022-07-29 11:25 | Inpatient (IN) | payer MEDICARE, OTHER ==
[~2022-07-29] VITALS: Ht 152.4 cm; Wt 72.3 kg
[~2022-07-29 11:25] MED LIST changes: -LEVO-T75 MCG PO; +LEVSOD75 PO
[2022-07-29] MEDS ORDERED: B COMPLEX FORM0.4 MG (14:46)
[2022-07-29] MEDS ORDERED: Vitamin C100 M1 PO (14:47)
[2022-07-29 18:01] LABS: BASOPHILS ABSOLUTE AUTO 0.04 K/mm3 (0.00-0.23); BASOPHILS PERCENT AUTO 1 % (0-2); EOSINOPHILS ABSOLUTE AUTO 0.33 K/mm3 (0.00-0.68); EOSINOPHILS PERCENT AUTO 6 % (0-6); Hematocrit 39.7 % (33.0-51.0); IMMATURE GRAN ABSOLUTE AUTO 0.01 K/mm3 (0.00-0.10); IMMATURE GRAN PERCENT AUTO 0 % (0-1); LYMPHOCYTES ABSOLUTE AUTO 1.74 K/mm3 (0.84-5.20); LYMPHOCYTES PERCENT AUTO 29 % (21-46); MONOCYTES ABSOLUTE AUTO 0.57 K/mm3 (0.16-1.47); MONOCYTES PERCENT AUTO 10 % (4-13); Mean Corpuscular HGB Conc 35.3 g/dL (31.5-36.5); Mean Corpuscular Volume 88 fL (80-100); Mean Platelet Volume 9.8 fL (9.1-12.4); NEUTROPHILS ABSOLUTE AUTO 3.29 K/mm3 (1.96-9.15); NEUTROPHILS PERCENT AUTO 55 % (41-73); Platelet Count 309 K/mm3 (150-400); RDW Coefficient Variation 13.1 % (11.7-14.2); RDW Standard Deviation 42.5 fL (35.1-46.3); Red Blood Cell Count 4.51 M/mm3 (3.80-5.20); White Blood Cell Count 5.98 K/mm3 (4.00-11.30)
[2022-07-29 18:34] LABS: Alanine Aminotransfer (ALT/SGP 23 U/L (12-78); Albumin, Blood 3.5 g/dL (3.4-5.0); Albumin/Globulin Ratio 0.8 (0.8-1.8); Alk Phos 65 U/L (50-136); Anion Gap 4 mmol/L (6-16); Aspartate Aminotrans (AST/SGOT 23 U/L (12-37); Bilirubin, Total 0.4 mg/dL (0.1-1.0); Blood Urea Nitrogen 33 mg/dL (8-24); Bun/Creatinine Ratio 35.2 (12.0-20.0); C-REACTIVE PROTEIN, EXT RANGE <0.290 mg/dL (0.000-0.300); CO2, Blood 29 mmol/L (21-32); Calcium, Blood 9.8 mg/dL (8.5-10.1); Chloride, Blood 105 mmol/L (98-108); Creatinine, Blood 0.94 mg/dL (0.40-1.00); Globulin, Blood 4.4 g/dL (2.2-4.0); Glomerular Filtration Rate 67 (60-); Glucose, Blood 133 mg/dL (70-99); Phosphorus, Blood 3.5 mg/dL (2.5-4.9); Potassium, Blood 4.5 mmol/L (3.5-5.5); Sodium, Blood 138 mmol/L (136-145); Total Protein, Blood 7.9 g/dL (6.4-8.2)
--- NOTE | 2022-07-29 20:13 | NUR ---
SHIFT SUMMARY- BEDSIDE REPORT COMPLETED WITH NIGHT RN. PT WAS A DIRECT ADMIT FROM DR ROSE. SINCE ADMIT THE PT HAS HAD A PG PLACED AFTER THREE FAILED ATTEMPTS AT PERIPHERAL IV STARTS. PT HAD A VL ART DUPLEX DONE, A CONSULT TO DR CHEN WITH PODIATRY WAS CALLED AND A 3 VIEW XRAY OF THE RLE WAS DONE. PHOTOS ARE IN THE CHART FOR THE DIABETIC FOOT ULCER THE PT WAS ADMITTED FOR, MEPILEX PLACED OVER THE HEEL FOR PROTECTION. PT IS ALERT AND ORIENTED AND A GOOD HISTORIAN. AT THE TIME OF BEDSIDE REPORT THE PT WAS RECIEVEING IV VANCO. THE PT C/O THE AIR FEELING THICKER AND A LITTLE HARDER TO BREATHE AND HER HEAD WAS ITCHING. VANCO WAS STOPPED AND IV FLUSHED. THE PT STOPPED ITCHING WITHIN A FEW MINUTES, NIGHT RN AWARE AND IS CALLING THE NIGHT HOSPITALIST. PT IN BED, CALL LIGHT IN REACH NO CURRENT S&S OF DISTRESS NOTED.
--- NOTE | 2022-07-29 23:24 | NUR ---
late note from 1945. PATIENT C/O ITCHING AND FEELING LIKE SHE COULDN'T BREATH IN A WHOLE BREATH "LIKE WHEN I STARTED TO HAVE A PCN REACTION" (SHE BECAME ANAPHALACTIC BY HER DESCRIPTION). IV VANCOMYCIN STOPPED, AND TUBING DISPOSED OF FROM PRIMARY NS. CALL PLACED TO HOSPITALIST WELL PHARMACIST. PHARMACIST SAID THAT MERREM IS A VERY DISTANT COUSIN OF PENICILLAN, AND SINCE SHE HAD HAD IT JUST BEFORE HER VANCOMYCIN, THIS COULD POSSIBLY THE CAUSE OF HER REACTION. MD INFORMED OF RX INFORMATION. ORDER FOR 25MG IV BENADRYL NOW (GIVEN), AND EVERY 6 HOURS NEEDED FOR ALLERGIC REACTION.
--- NOTE | 2022-07-30 08:34 | NUR ---
PATIENTS CONCERN FOR ALLERGIC REACTION EARLY IN THE EVENING TO ONE OF HER ANTIBIOTICS WAS RESOLVED WITH 25MG IV BENEDRYL PRIOR TO FINISHING HER NIGHT TIME DOSE OF VANCOMYCIN, AND THEN MERREM WITHOUT ANY DIFFICULTY, ITCHING OR SOB. CARLA DID COMPLAIN ABOUT FEELING A LITTLE TRAPPED IN THE CPAP AND BIOX, BUT QUICKLY FELL BACK TO SLEEP AFTER SHE RETURNED FROM THE BATHROOM. WITHOUT THE CPAP, SHE REMAINED >90% ON BIOX
--- NOTE | 2022-07-30 12:18 | NUR ---
PT CHANGED HER INSULIN PUMP INFUSION PORT AND REFILLED HER PUMP. PT REFILLED HER PUMP WITH 160 UNITS OF NOVOLOG IS HER STANDARD FILL QTY. ENVELOPE FOLDER ANITA PRESENT THE PT PERFORMED THE FILL AND CHANGED HER INFUSION PORT.
--- NOTE | 2022-07-30 17:51 | NUR ---
SHIFT SUMMARY- PT ALERT, ORIENTED AND 1PA WITH TRANSFERS. SHE NEEDS A SMALL MANUAL WC TO BE ABLE TO SAFELY GET INTO THE BATHROOM. WILL ATTEMPT TO CONTACT PHYSICAL THERAPY TO SEE IF THEY HAVE SOMETHING THAT MIGHT ASSIST THE PT. PT HAS HER OWN INSULIN PUMP THAT SHE MANAGES HERSELF. SHE CARB COUNTS HER MEALS AND DOSES HER INSULIN ACCORDINGLY. PT HAS A PG THAT IS INFUSING 50ML/HR NS AT THIS TIME. PT HAS RECIEVED MERROPENEM TWICE TODAY WITH NO COMPLICATIONS WITH EITHER DOSE. PT WAS SEEN BY PODIATRY AND IT APPEARS NO SURGICAL INTERVENTION IS NEEDED, BUT DAILY CHANGES OF THE HEEL MEPILEX WAS SUGGESTED. HEEL MEPILEX WAS REPLACED AFTER THE SHOE SPRAYER CAME TO SEE THE PT. PT IN BED, CALL LIGHT IN REACH NO CURRENT S&S OF DISTRESS NOTED. WILL CTM AND PASS ON TO NIGHT RN IN BEDSIDE REPORT.
--- NOTE | 2022-07-31 04:54 | NUR ---
SLEPT WELL. OOB WITH ONE ASSIST TO BEDSIDE COMMODE. MEDIUM SOFT BM IN THE EVENING. COMPLAINTS OF SOME ANXIETY AT BEDTIME. XANAX ORDERED PER REQUEST, BUT PATIENT ASLEEP WHEN IT WAS BROUGHT IT. IN MORNING, CARLA COMPLAINED OF SOME NAUSEA, WHICH RESOLVED WITH 4MG ZOFRAN PER ORDER
[2022-07-31 05:33] LABS: BASOPHILS ABSOLUTE AUTO 0.02 K/mm3 (0.00-0.23); BASOPHILS PERCENT AUTO 0 % (0-2); EOSINOPHILS ABSOLUTE AUTO 0.26 K/mm3 (0.00-0.68); EOSINOPHILS PERCENT AUTO 4 % (0-6); Hematocrit 36.9 % (33.0-51.0); Hemoglobin 12.7 g/dL (11.5-16.0); IMMATURE GRAN ABSOLUTE AUTO 0.02 K/mm3 (0.00-0.10); IMMATURE GRAN PERCENT AUTO 0 % (0-1); LYMPHOCYTES ABSOLUTE AUTO 0.71 K/mm3 (0.84-5.20); LYMPHOCYTES PERCENT AUTO 11 % (21-46); MONOCYTES ABSOLUTE AUTO 0.53 K/mm3 (0.16-1.47); MONOCYTES PERCENT AUTO 8 % (4-13); Mean Corpuscular HGB 30.4 pg (26.0-34.0); Mean Corpuscular HGB Conc 34.4 g/dL (31.5-36.5); Mean Corpuscular Volume 88 fL (80-100); NEUTROPHILS ABSOLUTE AUTO 4.99 K/mm3 (1.96-9.15); NEUTROPHILS PERCENT AUTO 76 % (41-73); Platelet Count 252 K/mm3 (150-400); RDW Coefficient Variation 13.1 % (11.7-14.2); RDW Standard Deviation 42.5 fL (35.1-46.3); Red Blood Cell Count 4.18 M/mm3 (3.80-5.20); White Blood Cell Count 6.53 K/mm3 (4.00-11.30)
[2022-07-31 05:54] LABS: Albumin, Blood 3.1 g/dL (3.4-5.0); Albumin/Globulin Ratio 0.8 (0.8-1.8); Bilirubin, Total 0.8 mg/dL (0.1-1.0); Bun/Creatinine Ratio 25.8 (12.0-20.0); Calcium, Blood 8.7 mg/dL (8.5-10.1); Creatinine, Blood 0.77 mg/dL (0.40-1.00); Globulin, Blood 3.7 g/dL (2.2-4.0); Potassium, Blood 4.3 mmol/L (3.5-5.5); Total Protein, Blood 6.8 g/dL (6.4-8.2)
--- NOTE | 2022-07-31 11:31 | NUR ---
SPOKE TO DR TRUONG- PT TO PA HOME WITH WOUND CARE REFERRAL. ENERGY CONTROL OFFICER IS FAXING THE ODER TO WOUND CLINIC PRIOR TO DISCHARGE. DRESSING WILL BE CHANGED PRIOR TO DISCHARGE.
--- NOTE | 2022-07-31 12:03 | NUR ---
HEEL MEPILEX CHANGED. WOUND EDGES APPEAR IMPROVED REDNESS IS NEARLY GONE FROM THE HEEL.
[2022-07-31] MEDS ORDERED: Cleocin HCl300 MG PO (12:24)
--- NOTE | 2022-07-31 14:31 | NUR ---
DISCHARGE NOTE- PT WAS GIVEN VERBAL AND WRITTEN DISCHARGE INSTRUCTIONS AND ACKNOWLEDGED UNDERSTANDING OF THEM. PT REQUESTED MEDS FAXED TO [facility] [address]. PT DECLINED ASSISTANCE TO GET READY TO GO, SHE IS CURRENTLY GETTING HERSELF DRESSED. PT CALLED HER BROTHER TO COME PICK HER UP SHE WILL PUSH HER CALL BUTTON WHEN HE ARRIVES, AND WILL BE ESCORTED OUT VIA WC. NO CURRENT S&S OF DISTRESS NOTED PG DC'D AT THE TIME OF DISCHARGE TEACHING.
--- NOTE | 2022-08-02 20:58 | NUR ---
REVIEWED PT'S INFORMATION R/T PT CALLED TO DISCUSS A MEDICATION FROM HOME THAT DID NOT MAKE IT HOME WITH HER, SENT AN ORDER TO PT ADVOCATE.
== END 2022-07-31 14:52 | disposition home or self-care (01) | DRG 639 ==
LOC: MEDS 11:25
PROVIDERS: Internal Medicine; ADMIT Hospitalist
PROC: 5A09357 Assistance with Respiratory Ventilation, Less than 24 Consecutive Hours, Continuous Positive Airway Pressure (ICD-10-PCS; principal; 2022-07-29)
DX: E10.628 Type 1 diabetes mellitus with other skin complications (principal); E10.51 Type 1 diabetes mellitus with diabetic peripheral angiopathy without gangrene; E10.42 Type 1 diabetes mellitus with diabetic polyneuropathy; I10 Essential (primary) hypertension; G89.4 Chronic pain syndrome; I25.10 Atherosclerotic heart disease of native coronary artery without angina pectoris; E03.9 Hypothyroidism, unspecified; E78.5 Hyperlipidemia, unspecified; G47.33 Obstructive sleep apnea (adult) (pediatric); L08.89 Other specified local infections of the skin and subcutaneous tissue; Z96.41 Presence of insulin pump (external) (internal); Z98.890 Other specified postprocedural states; Z95.828 Presence of other vascular implants and grafts; Z89.612 Acquired absence of left leg above knee; Z95.1 Presence of aortocoronary bypass graft; Z88.0 Allergy status to penicillin; Z79.4 Long term (current) use of insulin; Z88.8 Allergy status to other drugs, medicaments and biological substances; Z88.1 Allergy status to other antibiotic agents; Z88.5 Allergy status to narcotic agent; Z88.2 Allergy status to sulfonamides; Z79.899 Other long term (current) drug therapy; Z79.02 Long term (current) use of antithrombotics/antiplatelets; Z99.81 Dependence on supplemental oxygen
CPT/HCPCS: 73630; 80053; 82947; 83735; 84100; 85025; 85651; 86140; 93926; 94660; 94762; A9270; C1751; J1200; J1650; J2185; J2405; J3370; J7030; J7050

== ENCOUNTER 2022-08-03 02:22 | Day surgery (SDC) | payer MEDICARE, OTHER ==
[~2022-08-03 02:22] MED LIST changes: +B COMPLEX FORM0.4 MG; +Cleocin HCl300 MG PO; +Vitamin C100 M1 PO
== END 2022-08-03 23:16 | disposition home or self-care (01) ==
LOC: WOUND 02:22
DX: E11.621 Type 2 diabetes mellitus with foot ulcer (principal); L97.422 Non-pressure chronic ulcer of left heel and midfoot with fat layer exposed; E11.51 Type 2 diabetes mellitus with diabetic peripheral angiopathy without gangrene; Z87.891 Personal history of nicotine dependence; Z88.0 Allergy status to penicillin; Z88.1 Allergy status to other antibiotic agents; Z91.041 Radiographic dye allergy status; Z91.013 Allergy to seafood; Z86.74 Personal history of sudden cardiac arrest
CPT/HCPCS: G0463

== ENCOUNTER 2022-08-10 02:18 | Day surgery (SDC) | payer MEDICARE, OTHER | END 2022-08-10 22:37 | disposition home or self-care (01) | LOC: WOUND 02:18 | DX: E11.621 Type 2 diabetes mellitus with foot ulcer (principal); L97.412 Non-pressure chronic ulcer of right heel and midfoot with fat layer exposed; E11.51 Type 2 diabetes mellitus with diabetic peripheral angiopathy without gangrene | CPT/HCPCS: G0463 ==

== ENCOUNTER 2022-08-17 00:43 | Day surgery (SDC) | payer MEDICARE, OTHER | END 2022-08-17 23:01 | disposition home or self-care (01) | LOC: WOUND 00:43 | DX: E10.621 Type 1 diabetes mellitus with foot ulcer (principal); L97.412 Non-pressure chronic ulcer of right heel and midfoot with fat layer exposed; E10.51 Type 1 diabetes mellitus with diabetic peripheral angiopathy without gangrene | CPT/HCPCS: G0463 ==

== ENCOUNTER 2024-09-10 12:48 | Inpatient (IN) | payer MEDICARE, OTHER ==
[2024-09-10] VITALS (13 sets, daily range): BP systolic 87–103; BP diastolic 52–80
[~2024-09-10] VITALS: Ht 152.4 cm; Wt 64.9 kg
[2024-09-10 13:48] LABS: Base Excess Venous -10.7 mmol/L; Bicarbonate Venous 15.8 mmol/L (24.0-30.0); PCO2 Venous 46.2 mmHg (38-42); pH Blood Venous 7.18 (7.34-7.37)
[2024-09-10] MEDS ORDERED: NS 1,000 ML IV SCH ×3 (14:00→16:40)
[2024-09-10 14:01] LABS: Magnesium, Blood 2.4 mg/dL (1.6-2.4)
[2024-09-10 14:05] LABS: Albumin/Globulin Ratio 1.2 (0.8-1.8); Bilirubin, Total 1.6 mg/dL (0.1-1.0); Bun/Creatinine Ratio 21.4 (12.0-20.0); Calcium, Blood 9.6 mg/dL (8.5-10.1); Creatinine, Blood 1.92 mg/dL (0.40-1.00); Globulin, Blood 3.3 g/dL (2.2-4.0); Phosphorus, Blood 5.5 mg/dL (2.5-4.9); Potassium, Blood 4.8 mmol/L (3.5-5.5); Total Protein, Blood 7.3 g/dL (6.4-8.2)
[2024-09-10 14:16] LABS: BASOPHILS ABSOLUTE AUTO 0.02 K/mm3 (0.00-0.23); BASOPHILS PERCENT AUTO 0 % (0-2); EOSINOPHILS PERCENT AUTO 0 % (0-6); Hematocrit 34.2 % (33.0-51.0); Hemoglobin 11.8 g/dL (11.5-16.0); IMMATURE GRAN ABSOLUTE AUTO 0.03 K/mm3 (0.00-0.10); IMMATURE GRAN PERCENT AUTO 0 % (0-1); LYMPHOCYTES ABSOLUTE AUTO 1.09 K/mm3 (0.84-5.20); LYMPHOCYTES PERCENT AUTO 9 % (21-46); MONOCYTES ABSOLUTE AUTO 0.86 K/mm3 (0.16-1.47); MONOCYTES PERCENT AUTO 7 % (4-13); Mean Corpuscular HGB 30.7 pg (26.0-34.0); Mean Corpuscular HGB Conc 34.5 g/dL (31.5-36.5); Mean Corpuscular Volume 89 fL (80-100); Mean Platelet Volume 10.1 fL (9.1-12.4); NEUTROPHILS ABSOLUTE AUTO 9.96 K/mm3 (1.96-9.15); NEUTROPHILS PERCENT AUTO 83 % (41-73); Platelet Count 265 K/mm3 (150-400); RDW Coefficient Variation 13.1 % (11.7-14.2); RDW Standard Deviation 42.7 fL (35.1-46.3); Red Blood Cell Count 3.84 M/mm3 (3.80-5.20); White Blood Cell Count 11.96 K/mm3 (4.00-11.30)
[2024-09-10] MEDS ORDERED: Insulin Human Regular 100 UNIT in NS 100 ML IV SCH (14:35)
[2024-09-10 15:20] LABS: Source, Urine Clean Catch
[2024-09-10 15:41] LABS: Bilirubin, Urine Neg (Neg); Blood, Urine 1+ (Neg); Glucose Qualitative, Urine Neg (Neg); Ketones, Urine Neg (Neg); Leukocyte Esterase, Urine Neg (Neg); Nitrite, Urine Neg (Neg); Protein, Urine 2+ (Neg); Specific Gravity, Urine 1.025 (1.003-1.022); Urobilinogen, Urine NORM (Normal)
[2024-09-10 15:49] LABS: Appearance, Urine Clear (Clear); Color, Urine Yellow (P-Yellow)
[2024-09-10 15:50] LABS: Bacteria Few /hpf; Squamous Epithelial Cells Few /hpf (Few)
[2024-09-10 15:52] LABS: Amorphous Light (0-Heavy)
[2024-09-10] MEDS ORDERED: Ondansetron HCl 2 MG / ML 2ML Vial IV PRN (16:35)
[2024-09-10] MEDS ORDERED: D5W-1/2NS KCl 10mEq 1,000 ML IV SCH (16:40)
[2024-09-10] MEDS ORDERED: Dextrose 50% 50 ML Syringe IV PRN (16:40)
--- NOTE | 2024-09-10 18:00 | NUR ---
assumption of care patient arrived from ER. with nausea, gave her an antiemetic iv. she is on an insulin gtt titrating to dka order set policy. NS to go aat 150mlhr. She has two piv's both pull blood back and flush easily right ac 20g and left FA 22g. Patient has lle amputation. No wounds only scattered bruising on right flank and right thigh. Patient alert and oriented x 4. ESCALANTE, does have bp with map 64-68. Rhythm Sinus rhythm Sinus tach with a first degree block.
[2024-09-10] MEDS ORDERED: EZET10 PO (18:25)
[2024-09-10] MEDS ORDERED: CALCIUM 500 MG1 EAC9 PO (18:26)
[2024-09-10] MEDS ORDERED: [UNRECOGNIZED DRUG - OTHER] (18:27)
[2024-09-10] MEDS ORDERED: VITAMIN D5000 UNIT PO (18:28)
[2024-09-10] MEDS ORDERED: CefTRIAXone Sodium 1,000 MG in NS 100 ML IV SCH (18:30)
[2024-09-10] MEDS ORDERED: ALPRAZolam 0.25 MG Tab PO PRN (18:35)
[2024-09-10 18:47] LABS: Albumin, Blood 3.4 g/dL (3.4-5.0); Anion Gap 12 mmol/L (3-11); Blood Urea Nitrogen 37 mg/dL (8-24); Bun/Creatinine Ratio 23.1 (12.0-20.0); CO2, Blood 25 mmol/L (21-32); Calcium, Blood 8.9 mg/dL (8.5-10.1); Chloride, Blood 99 mmol/L (98-108); Glomerular Filtration Rate 35 (60-); Glucose, Blood 424 mg/dL (70-99); Phosphorus, Blood 2.6 mg/dL (2.5-4.9); Potassium, Blood 4.1 mmol/L (3.5-5.5); Sodium, Blood 132 mmol/L (136-145)
[2024-09-10] MEDS ORDERED: Aspirin 325 MG Tab PO ONE (20:00)
[2024-09-10 20:43] LABS: Anti-Xa UFH, PHA Monitoring <0.10 IU/mL; International Normalized Ratio 1.22; Prothrombin Time Results 12.9 Sec (9.7-11.5)
[2024-09-10] MEDS ORDERED: Heparin Sodium 5000 Units/ML 1ML MDV IV ONE (20:50)
[2024-09-10] MEDS ORDERED: Heparin Sodium,Porcine/0.5 NS 500 ML IV SCH (20:50)
[2024-09-10 22:43] LABS: Albumin, Blood 3.1 g/dL (3.4-5.0); Anion Gap 15 mmol/L (3-11); Blood Urea Nitrogen 40 mg/dL (8-24); Bun/Creatinine Ratio 23.7 (12.0-20.0); CO2, Blood 20 mmol/L (21-32); Calcium, Blood 8.3 mg/dL (8.5-10.1); Chloride, Blood 102 mmol/L (98-108); Creatinine, Blood 1.69 mg/dL (0.40-1.00); Glomerular Filtration Rate 32 (60-); Glucose, Blood 247 mg/dL (70-99); Phosphorus, Blood 2.4 mg/dL (2.5-4.9); Potassium, Blood 3.9 mmol/L (3.5-5.5); Sodium, Blood 133 mmol/L (136-145)
[2024-09-11] VITALS (60 sets, daily range): BP systolic 60–127; BP diastolic 39–91
[2024-09-11] MEDS ORDERED: ALPRAZolam 0.25 MG Tab PO ONE (01:15)
[2024-09-11] MEDS ORDERED: Lactated Ringer's 1,000 ML IV ONE (02:18)
[2024-09-11] MEDS ORDERED: Lactated Ringer's 250 ML IV ONE ×2 (02:20→02:35)
[2024-09-11 02:36] LABS: Base Excess Venous -5.3 mmol/L; Bicarbonate Venous 19.9 mmol/L (24.0-30.0); PCO2 Venous 43.7 mmHg (38-42); pH Blood Venous 7.29 (7.34-7.37)
[2024-09-11 02:45] LABS: BASOPHILS ABSOLUTE AUTO 0.06 K/mm3 (0.00-0.23); BASOPHILS PERCENT AUTO 0 % (0-2); EOSINOPHILS ABSOLUTE AUTO 0.04 K/mm3 (0.00-0.68); EOSINOPHILS PERCENT AUTO 0 % (0-6); Hematocrit 35.6 % (33.0-51.0); Hemoglobin 12.1 g/dL (11.5-16.0); IMMATURE GRAN ABSOLUTE AUTO 0.07 K/mm3 (0.00-0.10); IMMATURE GRAN PERCENT AUTO 0 % (0-1); LYMPHOCYTES ABSOLUTE AUTO 2.54 K/mm3 (0.84-5.20); LYMPHOCYTES PERCENT AUTO 12 % (21-46); MONOCYTES ABSOLUTE AUTO 1.88 K/mm3 (0.16-1.47); MONOCYTES PERCENT AUTO 9 % (4-13); Mean Corpuscular HGB 31.3 pg (26.0-34.0); Mean Corpuscular Volume 92 fL (80-100); NEUTROPHILS ABSOLUTE AUTO 16.04 K/mm3 (1.96-9.15); NEUTROPHILS PERCENT AUTO 78 % (41-73); Platelet Count 261 K/mm3 (150-400); RDW Coefficient Variation 13.4 % (11.7-14.2); RDW Standard Deviation 45.3 fL (35.1-46.3); Red Blood Cell Count 3.86 M/mm3 (3.80-5.20); White Blood Cell Count 20.63 K/mm3 (4.00-11.30)
[2024-09-11 03:08] LABS: Albumin, Blood 3.1 g/dL (3.4-5.0); Albumin/Globulin Ratio 1.1 (0.8-1.8); Bilirubin, Total 0.4 mg/dL (0.1-1.0); Bun/Creatinine Ratio 20.8 (12.0-20.0); Calcium, Blood 8.4 mg/dL (8.5-10.1); Creatinine, Blood 1.97 mg/dL (0.40-1.00); Globulin, Blood 2.8 g/dL (2.2-4.0); Phosphorus, Blood 2.4 mg/dL (2.5-4.9); Potassium, Blood 3.9 mmol/L (3.5-5.5); Total Protein, Blood 5.9 g/dL (6.4-8.2)
[2024-09-11] MEDS ORDERED: Dose Adjust by Pharmacy XX STA ×2 (04:25→14:55)
--- NOTE | 2024-09-11 05:42 | NUR ---
SHIFT SUMMARY PT HAS TOLERATED SHIFT WITH SOME CHANGES IN STATUS AND SIGNIFICANT EVENTS OVERNIGHT. IT WAS REPORTED TO THIS NURSE THAT THE PT HAD SOFT BLOOD PRESSURES DURRING HER TIME IN ED AND ALSO DURING HER TIME IN ICU. PT CONTINUES TO HAVE SOFT PRESSURES THROUGH SHIFT, BUT REMAINS A&O x 4 THROUGHOUT. AT APPROXIMATELY 0150 THIS NURSE WENT TO GET A BLOOD SUGAR ON PT AND FOUND PT TO BE FAR MORE DROWSY AND DIFFICULT TO ROUSE. BLOOD PRESSURE WAS ALSO DECREASED. PT WAS ABLE TO AWAKEN AND ANSWER QUESTIONS APPROPRIATELY. PHYSICIAN INFORMED OF EVENT AND ORDERS WERE PLACED. AFTER 500ML TOTAL LR BOLUS, PT WAS STARTED ON LEVOPHED AND TITRATED TO EFFECT. PT NOW APPEARS TO BE RESTING COMFORTABLY IN BED AND BP IS STABLE. WILL CONTINUE TO MONITOR UNTIL REPORT PASSED TO DAY SHIFT TEAM.
[2024-09-11] MEDS ORDERED: Levothyroxine Sodium 0.075 MG Tab PO SCH (06:00)
[2024-09-11 08:58] LABS: Albumin, Blood 3.2 g/dL (3.4-5.0); Anion Gap 15 mmol/L (3-11); Blood Urea Nitrogen 41 mg/dL (8-24); Bun/Creatinine Ratio 22.9 (12.0-20.0); CO2, Blood 19 mmol/L (21-32); Calcium, Blood 8.1 mg/dL (8.5-10.1); Chloride, Blood 101 mmol/L (98-108); Creatinine, Blood 1.79 mg/dL (0.40-1.00); Glomerular Filtration Rate 30 (60-); Glucose, Blood 214 mg/dL (70-99); Phosphorus, Blood 2.7 mg/dL (2.5-4.9); Potassium, Blood 4.1 mmol/L (3.5-5.5); Sodium, Blood 131 mmol/L (136-145)
[2024-09-11] MEDS ORDERED: Aspirin 325 MG Tab PO SCH (09:00)
[2024-09-11] MEDS ORDERED: Enoxaparin 30 MG/0.3 ML SYR SC SCH (09:00)
[2024-09-11] MEDS ORDERED: Clopidogrel Bisulfate 75 MG Tab PO SCH (09:00)
[2024-09-11] MEDS ORDERED: AmLODIPine Besylate 5 MG Tab PO SCH (09:00)
[2024-09-11 10:26] LABS: BASOPHILS ABSOLUTE AUTO 0.07 K/mm3 (0.00-0.23); BASOPHILS PERCENT AUTO 0 % (0-2); EOSINOPHILS ABSOLUTE AUTO 0.01 K/mm3 (0.00-0.68); EOSINOPHILS PERCENT AUTO 0 % (0-6); Hematocrit 39.2 % (33.0-51.0); Hemoglobin 13.6 g/dL (11.5-16.0); IMMATURE GRAN PERCENT AUTO 0 % (0-1); LYMPHOCYTES ABSOLUTE AUTO 1.74 K/mm3 (0.84-5.20); LYMPHOCYTES PERCENT AUTO 8 % (21-46); MONOCYTES ABSOLUTE AUTO 1.33 K/mm3 (0.16-1.47); MONOCYTES PERCENT AUTO 6 % (4-13); Mean Corpuscular HGB 30.8 pg (26.0-34.0); Mean Corpuscular HGB Conc 34.7 g/dL (31.5-36.5); Mean Corpuscular Volume 89 fL (80-100); Mean Platelet Volume 9.7 fL (9.1-12.4); NEUTROPHILS ABSOLUTE AUTO 19.25 K/mm3 (1.96-9.15); NEUTROPHILS PERCENT AUTO 86 % (41-73); Platelet Count 285 K/mm3 (150-400); RDW Coefficient Variation 13.3 % (11.7-14.2); RDW Standard Deviation 44.1 fL (35.1-46.3); Red Blood Cell Count 4.41 M/mm3 (3.80-5.20)
[2024-09-11 10:39] LABS: Albumin, Blood 3.2 g/dL (3.4-5.0); Albumin/Globulin Ratio 0.9 (0.8-1.8); Bilirubin, Total 0.4 mg/dL (0.1-1.0); Bun/Creatinine Ratio 22.7 (12.0-20.0); Calcium, Blood 8.1 mg/dL (8.5-10.1); Creatinine, Blood 1.85 mg/dL (0.40-1.00); Globulin, Blood 3.4 g/dL (2.2-4.0); Potassium, Blood 4.1 mmol/L (3.5-5.5); Total Protein, Blood 6.6 g/dL (6.4-8.2)
[2024-09-11 13:40] LABS: Albumin, Blood 2.7 g/dL (3.4-5.0); Anion Gap 10 mmol/L (3-11); Beta-hydroxybutyrate 1.1 mg/dL (0.2-2.8); Blood Urea Nitrogen 37 mg/dL (8-24); Bun/Creatinine Ratio 23.6 (12.0-20.0); CO2, Blood 22 mmol/L (21-32); Calcium, Blood 7.2 mg/dL (8.5-10.1); Chloride, Blood 101 mmol/L (98-108); Creatinine, Blood 1.57 mg/dL (0.40-1.00); Glomerular Filtration Rate 35 (60-); Glucose, Blood 226 mg/dL (70-99); Potassium, Blood 4.3 mmol/L (3.5-5.5); Sodium, Blood 129 mmol/L (136-145)
[2024-09-11] MEDS ORDERED: Morphine Sulfate 20 MG/1ML 1 ML Oral Syringe PO PRN (14:55)
[2024-09-11] MEDS ORDERED: Sodium Phosphate 20 MM in Dextrose 5% 500 ML IV SCH (15:00)
[2024-09-11] MEDS ORDERED: Insulin Glargine-Yfgn 100 Unit/mL 3 ML SYR SC SCH (15:00)
[2024-09-11] MEDS ORDERED: LORazepam 2 MG/ML 1ML Injection ONE (15:38)
[2024-09-11] MEDS ORDERED: LORazepam 2 MG/ML 1ML Injection IV PRN ×2 (15:45→16:10)
--- NOTE | 2024-09-11 15:45 | NUR ---
Patient had a cardiac rhythm change. When asked how she's feeling, she states she feels tired. Noted that patient is becoming more anxious and states "I feel like I'm dying". Notified Dr Pena who gave order for ativan. Provider states no need to perform EKGs or other testing.
[2024-09-11] MEDS ORDERED: Morphine Sulfate 4 MG/1 ML Injection ONE (16:04)
[2024-09-11] MEDS ORDERED: Morphine Sulfate 10 MG/ML 1MLSYR IV PRN (16:05)
[2024-09-11] MEDS ORDERED: Scopolamine Hydrobromide Patch TOP PRN (16:05)
[2024-09-11] MEDS ORDERED: Morphine Sulfate 20 MG/1ML 1 ML Oral Syringe SL PRN (16:05)
[2024-09-11] MEDS ORDERED: Atropine Sulfate 1% Opth Soln 2ML BTL SL PRN (16:05)
--- NOTE | 2024-09-11 16:12 | NUR ---
Pt and daughter both report "We're ready" when discussing comfort care. The patient remains SOB, and daughter is at bedside. Patient was initially trying to wait for her father to arrive, but that won't happen until tomorrow, and the patient has decided she isn't able to wait, as the SOB has worsened. Received orders from Dr. Pena. Bedside RN aware, giving medication for comfort now.
[2024-09-11] MEDS ORDERED: Insulin Regular 100 UNIT/ML 10ML Vial SC SCH (16:30)
--- NOTE | 2024-09-11 17:46 | NUR ---
"Spiritual Care | Comfort Care/EOL Education Called to bedside by ICU nurse. Pt. has been placed on comfort care. Daughter is at bedside. Pastoral care is given as daughter vascilates between grief and fun memories. Eventually friends and the Pts. brother come to bedside. A quilt is provided. Facilitated a life review with memories of jeffrey and hope. Prayed over ther Pt. and for those at bedside. At an appropriate moment outside the room, confirmed with Pts. brother any EOL plans. Pt. had previously decided that she wanted to utilize the [employer]. Notified the charge nurse of the families decision and confirmed it with the Pts. daughter. Will remain available to the Pt. and family."
--- NOTE | 2024-09-11 18:36 | NUR ---
"Spiritual Care | EOL Pt. has been on comfort care. Scripture is read, and prayers are given. TOD was approx. 1812. Pastoral care and support is given. Confirmed with Pts. brother the family can stay, but to let the nurses know when they leave. Pt. does have belonings in the room. Brother and Pts. daughter will take them."
[2024-09-11] MEDS ORDERED: Atorvastatin 40 MG Tab PO SCH (21:00)
[2024-09-12] MEDS ORDERED: Pantoprazole Sodium 40 MG Tab PO SCH (06:00)
[2024-09-12] MEDS ORDERED: Aspirin 81 MG TabEC PO SCH (09:00)
== END 2024-09-11 23:10 | DRG 637 ==
LOC: ER 12:48 → ICUE 16:29 → ERHOLD 16:29 → ICUE 17:02
PROVIDERS: Internal Medicine Nephrology; Nurse Practitioner Acute Care; Physician Assistant; Student in an Organized Health Care Education/Training Program; ADMIT Hospitalist
PROC: 5A09357 Assistance with Respiratory Ventilation, Less than 24 Consecutive Hours, Continuous Positive Airway Pressure (ICD-10-PCS; 2024-09-10)
PROC: 3E033XZ Introduction of Vasopressor into Peripheral Vein, Percutaneous Approach (ICD-10-PCS; principal; 2024-09-11)
PROC: 0T9B70Z Drainage of Bladder with Drainage Device, Via Natural or Artificial Opening (ICD-10-PCS; 2024-09-11)
DX: E10.10 Type 1 diabetes mellitus with ketoacidosis without coma (principal); I21.4 Non-ST elevation (NSTEMI) myocardial infarction; K72.00 Acute and subacute hepatic failure without coma; N17.9 Acute kidney failure, unspecified; E87.1 Hypo-osmolality and hyponatremia; J81.1 Chronic pulmonary edema; I45.2 Bifascicular block; Z51.5 Encounter for palliative care; Z66 Do not resuscitate; R57.0 Cardiogenic shock; E10.22 Type 1 diabetes mellitus with diabetic chronic kidney disease; I44.0 Atrioventricular block, first degree; J47.9 Bronchiectasis, uncomplicated; D72.823 Leukemoid reaction; R82.71 Bacteriuria; G47.00 Insomnia, unspecified; I12.9 Hypertensive chronic kidney disease with stage 1 through stage 4 chronic kidney disease, or unspecified chronic kidney disease; N18.31 Chronic kidney disease, stage 3a; E86.9 Volume depletion, unspecified; E03.9 Hypothyroidism, unspecified; E78.5 Hyperlipidemia, unspecified; I25.10 Atherosclerotic heart disease of native coronary artery without angina pectoris; G47.33 Obstructive sleep apnea (adult) (pediatric); E88.09 Other disorders of plasma-protein metabolism, not elsewhere classified; E10.51 Type 1 diabetes mellitus with diabetic peripheral angiopathy without gangrene; E83.39 Other disorders of phosphorus metabolism; Z96.41 Presence of insulin pump (external) (internal); I25.2 Old myocardial infarction; Z95.1 Presence of aortocoronary bypass graft; Z89.612 Acquired absence of left leg above knee; Z88.8 Allergy status to other drugs, medicaments and biological substances; Z88.0 Allergy status to penicillin; Z88.5 Allergy status to narcotic agent; Z88.1 Allergy status to other antibiotic agents; Z79.02 Long term (current) use of antithrombotics/antiplatelets; Z87.891 Personal history of nicotine dependence; Z79.4 Long term (current) use of insulin; Z79.890 Hormone replacement therapy; Z95.820 Peripheral vascular angioplasty status with implants and grafts
CPT/HCPCS: 36415; 51702; 71045; 71046; 76770; 80053; 80069; 81001; 82010; 82803; 82947; 83605; 83735; 83880; 84100; 84484; 85025; 85520; 85610; 85730; 87086; 93005; 93010; 94760; 94762; 96360; 96361; 99285-25; A9270; C8929; J0696; J1644; J1815; J2060; J2270; J2405; J7030; J7060; J7120; Q9957